=== PATIENT | male | born 1960 | race Two or more races ===

== ENCOUNTER 2017-06-10 19:45 | Inpatient (IN) | payer MEDICAID ==
[~2017-06-10] VITALS: Ht 167.6 cm; Wt 54.4 kg
--- NOTE | 2017-06-10 19:51 | Emergency Room Report ---
History of Present Illness General Source: Patient Present Illness HPI [id number] BIBEMS from [facility] for "not taking his medication" and "being combative with staff" when they were trying to give him his PO Keppra. Patient was just DCed from outside hospital to SNF yesterday after ?debridement to craniotomy site after he had ICH s/p craniotomy in April. Patient with history of DM as well. Patient calm, cooperative in ED - answering questions, appropriate EMS Rhythm strip is NSR. No ischemia. Fingerstick ~200 per EMS History of ETOH abuse Allergies: Coded Allergies: No Known Allergies (Unverified , 06/10/17) Patient History Past Surgical History: other - Craniotomy Pertinent Family History: none Social History: Reports: smoking Review of Systems All Other Systems: negative except mentioned in HPI Physical Exam Sp02 EP Interpretation: reviewed, normal General Appearance: normal inspection, well appearing, no apparent distress, alert, GCS 15, non-toxic Head: normocephalic, other - large post-craniotomy scar to top of head and left side with new stitches to left side of head, granulation tissue. No sign of infection Eyes: bilateral eye PERRL, bilateral eye EOMI ENT: normal ENT inspection, hearing grossly normal, normal voice Neck: normal inspection, full range of motion, supple, no bony tend Respiratory: normal inspection, lungs clear, normal breath sounds, no respiratory distress, no retraction, no wheezing Cardiovascular #1: regular rate, rhythm, no edema Gastrointestinal: normal inspection, normal bowel sounds, non tender, soft, no guarding, no hernia Genitourinary: no CVA tenderness Musculoskeletal: normal inspection, back normal, normal range of motion, Sara' s Sign negative Neurologic: normal inspection, alert, oriented x3, responsive, speech normal Psychiatric: normal inspection, judgement/insight normal, memory normal, mood/ affect normal, no suicidal/homicidal ideation, no delusions Skin: normal inspection, normal color, no rash Medical Decision Making Diagnostic Impression: Primary Impression: Behavioral change Additional Impressions: ACS (acute coronary syndrome) T wave inversion in electrocardiogram Altered level of consciousness ER Course VSS. Afebrile Patient NOT altered here. Conversing normally in [place] [facility] stable. No Leuks. Utox negative. UA negative for infection. CXR negative for PNA on ED review Mild hypoNa. No other significant metabolic abnormalities ECG with qwaves and deep TWI in deep and inferior leads. Troponin 0. No previous ECGs to compare Tele admit with Dr Leos at 930pm EKG Diagnostic Results Rate: normal, other - Deep TWI in inferior and anterior leads ASA given to the pt in ED: No Rhythm Strip Diag. Results EP Interpretation: yes Rate: 89 Rhythm: NSR, no PVC's, no ectopy Chest X-Ray Diagnostic Results Chest X-Ray Diagnostic Results : Chest X-Ray Ordered: Yes # of Views/Limited/Complete: 1 View Indication: Other - AMS EP Interpretation: Yes Interpretation: no consolidation, no effusion, no pneumothorax, no acute cardiopulmonary disease Impression: No acute disease Interpreting ER Provider: Dr Jenn Bill MD Status: improved Disposition: ADMITTED INPATIENT Condition: Serious JENN BILL M.D. Jun 10, 2017 19:51
[2017-06-10] MEDS ORDERED: DOCUSATE SODIU100 MG ORAL (20:03)
[2017-06-10] MEDS ORDERED: ZOFRAN4 M3 ORAL (20:03)
[2017-06-10] MEDS ORDERED: KEPPRA1000 MG ORAL (20:03)
[2017-06-10] MEDS ORDERED: PEPCID20 MG ORAL (20:03)
[2017-06-10] MEDS ORDERED: ACETAMINOPHEN500 M7 PO (20:03)
[2017-06-10] MEDS ORDERED: MILK OF MA400 MG/51 ORAL (20:03)
[2017-06-10 20:16] LABS: BASOPHILS % (AUTO) 1.7 % (0.0-2.0); EOSINOPHILS % (AUTO) 0.1 % (0.0-3.0); LYMPHOCYTES % (AUTO) 28.7 % (20.0-45.0); MEAN CORPUSCULAR HEMOGLOBIN 28.7 PG (27.0-31.0); MEAN CORPUSCULAR HGB CONC 33.9 G/DL (32.0-36.0); MEAN CORPUSCULAR VOLUME 85 FL (80-99); MONOCYTES % (AUTO) 15.2 % (1.0-10.0); NEUTROPHILS % (AUTO) 54.3 % (45.0-75.0); PLATELET COUNT 306 K/UL (150-450); RED BLOOD COUNT 3.61 M/UL (4.70-6.10); RED CELL DISTRIBUTION WIDTH 16.8 % (11.6-14.8); WHITE BLOOD COUNT 6.3 K/UL (4.8-10.8)
[2017-06-10 20:18] VITALS: BP 130/72
[2017-06-10 20:30] LABS: APPEARANCE,URINE CLEAR; KETONES,URINE NEGATIVE (NEGATIVE); LEUKOCYTE ESTERASE ,URINE NEGATIVE (NEGATIVE); NITRITE,URINE NEGATIVE (NEGATIVE); PH,URINE 7 (4.5-8.0); PROTEIN,URINE NEGATIVE (NEGATIVE); UROBILINOGEN,URINE 4 MG/DL (0.0-1.0)
[2017-06-10 20:34] LABS: TROPONIN I < 0.30 ng/mL (<=0.30)
[2017-06-10 20:38] LABS: ALANINE AMINOTRANSFERASE 15 U/L (3-41); ALBUMIN/GLOBULIN RATIO 0.5 (1.0-2.7); ANION GAP 12 (5-15); ASPARTATE AMINO TRANSFERASE 32 U/L (5-40); CALCIUM 8.7 mg/dL (8.6-10.2); CARBON DIOXIDE 23 mEQ/L (20-30); CHLORIDE 98 mEQ/L (98-107); CREATININE 0.7 mg/dL (0.7-1.2); GLOMERULAR FILTRATION RATE > 60 mL/min (>60); HEMOLYSIS 6; POTASSIUM 3.8 mEQ/L (3.4-4.9); SODIUM 133 mEQ/L (135-145)
[2017-06-10 20:48] LABS: CKMB < 1.5 ng/mL (< 6.7)
[2017-06-10 22:06] VITALS: BP 118/73
[2017-06-10] MEDS ORDERED: Diltiazem 25mg/5ml IV PRN (22:30)
[2017-06-10] MEDS ORDERED: Enalaprilat 2.5mg/2ml Inj IV PRN (22:30)
[2017-06-10] MEDS ORDERED: DuoNeb 0.5-3(2.5)mg/3ml neb HHN PRN (22:30)
[2017-06-10] MEDS ORDERED: Ketorolac 30mg Inj IV PRN (22:30)
[2017-06-10] MEDS ORDERED: Miralax 17gm pkt ORAL PRN (22:30)
[2017-06-10] MEDS ORDERED: Morphine Sulfate 2mg/ml Inj IVP PRN (22:30)
[2017-06-10] MEDS ORDERED: Nitroglycerin Subl 0.4mg tab (Bottle Of 25) SL PRN (22:30)
[2017-06-10] MEDS ORDERED: Milk of Magnesia 30ml Ud ORAL SCH (22:30)
[2017-06-11] VITALS (7 sets, daily range): BP systolic 96–130; BP diastolic 61–86
[2017-06-11 05:34] LABS: BASOPHILS % (AUTO) 1.6 % (0.0-2.0); EOSINOPHILS % (AUTO) 2.2 % (0.0-3.0); LYMPHOCYTES % (AUTO) 41.8 % (20.0-45.0); MEAN CORPUSCULAR HEMOGLOBIN 26.7 PG (27.0-31.0); MEAN CORPUSCULAR HGB CONC 31.3 G/DL (32.0-36.0); MEAN CORPUSCULAR VOLUME 85 FL (80-99); MEAN PLATELET VOLUME 5.4 FL (6.5-10.1); MONOCYTES % (AUTO) 15.6 % (1.0-10.0); NEUTROPHILS % (AUTO) 38.9 % (45.0-75.0); PLATELET COUNT 355 K/UL (150-450); RED CELL DISTRIBUTION WIDTH 17.4 % (11.6-14.8); WHITE BLOOD COUNT 7.5 K/UL (4.8-10.8)
[2017-06-11 05:45] LABS: INR 1.3 (0.9-1.1); PROTHROMBIN TIME 13.4 SEC (9.30-11.50)
[2017-06-11 05:50] LABS: TROPONIN I < 0.30 ng/mL (<=0.30)
[2017-06-11 07:08] LABS: CHOLESTEROL 121 mg/dL (< 200); CHOLESTEROL/HDL RATIO 3.2 (3.3-4.4); CRP QUANT < 0.3 mg/dL (< 0.5); HEMOLYSIS 1; LDL CHOLESTEROL (CALC.) 75 mg/dL (60-99)
[2017-06-11] MEDS: Aspirin Baby 81mg ORAL SCH (09:37)
[2017-06-11] MEDS: Docusate 100mg cap ORAL SCH ×2 (09:37→17:23)
[2017-06-11] MEDS: Heparin 5000 units/ml inj SUBQ SCH ×2 (09:39→20:23)
--- NOTE | 2017-06-11 09:59 | Diagnostic Imaging Report ---
Indication: Dyspnea Comparison: None A single view chest radiograph was obtained. Findings: No definite infiltrate or pulmonary vascular congestion identified. The heart is borderline enlarged. The aorta is mildly enlarged consistent with atherosclerotic vascular disease. The bones are remarkable. Impression: No acute disease
--- NOTE | 2017-06-11 12:10 | History and Physical ---
History of Present Illness General Date patient seen: Jun 11, 2017 Reason for Hospitalization: Altered Level of Consciousness Present Illness HPI 57 year old male wtih hx of seizures, DM, ETOH abuse craniotomy from [facility] for "not taking his medication" and "being combative with staff" when they were trying to give him his PO Keppra. Pt was admitted to telemetry b /o abnormal ekg. He is calm and comfortable without any complains. Allergies: Coded Allergies: No Known Allergies (Unverified , 06/10/17) Medication History Scheduled Acetaminophen (Acetaminophen), 650 MG PO EVERY 4 HOURS, (Reported) Docusate Sodium* (Docusate Sodium*), 100 MG ORAL TWICE A DAY, (Reported) Famotidine (Pepcid), 20 MG ORAL BID, (Reported) Levetiracetam (Keppra), 1,000 MG ORAL BID, (Reported) Magnesium Hydroxide* (Milk Of Magnesia*), 30 ML ORAL PRN, (Reported) Scheduled PRN Ondansetron* (Zofran*), 4 MG ORAL Q4HR PRN for Nausea & Vomiting, (Reported) Patient History Healthcare decision maker Resuscitation status Full Code Advanced Directive on File Review of Systems All Other Systems: negative except mentioned in HPI Physical Exam General Appearance: WD/WN Lines, tubes and drains: peripheral, central line HEENT: normocephalic, atraumatic Neck: non-tender, normal alignment Respiratory/Chest: chest wall non-tender, lungs clear Cardiovascular/Chest: normal peripheral pulses, normal rate Abdomen: non tender Last 24 Hour Vital Signs Date Time Temp Pulse Resp B/P (MAP) Pulse Ox O2 Delivery O2 Flow Rate FiO2 06/11/17 08:00 67 06/11/17 08:00 97.7 75 20 119/75 99 Room Air 06/11/17 04:03 97.9 06/11/17 04:00 63 06/11/17 04:00 98.0 75 20 130/86 100 Room Air 06/11/17 00:00 71 06/11/17 00:00 97.9 72 20 119/79 96 Room Air 06/10/17 22:40 98.2 84 19 118/73 99 Room Air 06/10/17 22:06 98.2 84 19 118/73 99 Room Air 8/31/17 20:18 98.4 80 18 130/72 99 Room Air 06/10/17 19:49 98.2 78 12 129/79 99 Room Air Laboratory Tests Test 06/10/17 20:00 06/10/17 20:10 06/11/17 05:20 White Blood Count 6.3 K/UL (4.8-10.8) 7.5 K/UL (4.8-10.8) Red Blood Count 3.61 M/UL (4.70-6.10) L 4.00 M/UL (4.70-6.10) L Hemoglobin 10.4 G/DL (14.2-18.0) L 10.7 G/DL (14.2-18.0) L Hematocrit 30.5 % (42.0-52.0) L 34.2 % (42.0-52.0) L Mean Corpuscular Volume 85 FL (80-99) 85 FL (80-99) Mean Corpuscular Hemoglobin 28.7 PG (27.0-31.0) 26.7 PG (27.0-31.0) L Mean Corpuscular Hemoglobin Concent 33.9 G/DL (32.0-36.0) 31.3 G/DL (32.0-36.0) L Red Cell Distribution Width 16.8 % (11.6-14.8) H 17.4 % (11.6-14.8) H Platelet Count 306 K/UL (150-450) 355 K/UL (150-450) Mean Platelet Volume 5.0 FL (6.5-10.1) L 5.4 FL (6.5-10.1) L Neutrophils (%) (Auto) 54.3 % (45.0-75.0) 38.9 % (45.0-75.0) L Lymphocytes (%) (Auto) 28.7 % (20.0-45.0) 41.8 % (20.0-45.0) Monocytes (%) (Auto) 15.2 % (1.0-10.0) H 15.6 % (1.0-10.0) H Eosinophils (%) (Auto) 0.1 % (0.0-3.0) 2.2 % (0.0-3.0) Basophils (%) (Auto) 1.7 % (0.0-2.0) 1.6 % (0.0-2.0) Sodium Level 133 mEQ/L (135-145) L Potassium Level 3.8 mEQ/L (3.4-4.9) Chloride Level 98 mEQ/L (98-107) Carbon Dioxide Level 23 mEQ/L (20-30) Anion Gap 12 (5-15) Blood Urea Nitrogen 11 mg/dL (7-23) Creatinine 0.7 mg/dL (0.7-1.2) Estimat Glomerular Filtration Rate > 60 mL/min (>60) Glucose Level 236 mg/dL (74-106) H Calcium Level 8.7 mg/dL (8.6-10.2) Total Bilirubin 0.5 mg/dL (0.0-1.2) Aspartate Amino Transf (AST/SGOT) 32 U/L (5-40) Alanine Aminotransferase (ALT/SGPT) 15 U/L (3-41) Alkaline Phosphatase 167 U/L (40-129) H Total Creatine Kinase 122 U/L (38-174) Creatine Kinase MB < 1.5 ng/mL (< 6.7) Creatine Kinase MB Relative Index Troponin I < 0.30 ng/mL (<=0.30) < 0.30 ng/mL (<=0.30) Total Protein 9.0 g/dL (6.6-8.7) H Albumin 3.0 g/dL (3.5-5.2) L Globulin 6.0 g/dL Albumin/Globulin Ratio 0.5 (1.0-2.7) L Urine Color Pale yellow Urine Appearance Clear Urine pH 7 (4.5-8.0) Urine Specific [place] 1.010 (1.005-1.035) Urine Protein Negative (NEGATIVE) Urine Glucose (UA) 4+ (NEGATIVE) H Urine Ketones Negative (NEGATIVE) Urine Occult Blood Negative (NEGATIVE) Urine Nitrite Negative (NEGATIVE) Urine Bilirubin Negative (NEGATIVE) Urine Urobilinogen 4 MG/DL (0.0-1.0) H Urine Leukocyte Esterase Negative (NEGATIVE) Urine Opiates Screen Negative (NEGATIVE) Urine Barbiturates Screen Negative (NEGATIVE) Phencyclidine (PCP) Screen Negative (NEGATIVE) Urine Amphetamines Screen Negative (NEGATIVE) Urine Benzodiazepines Screen Negative (NEGATIVE) Urine Cocaine Screen Negative (NEGATIVE) Urine Marijuana (THC) Screen Negative (NEGATIVE) Prothrombin Time 13.4 SEC (9.30-11.50) H Prothromb Time International Ratio 1.3 (0.9-1.1) H Activated Partial Thromboplast Time 33 SEC (23-33) Hemoglobin A1c 5.7 % (< 6.0) C-Reactive Protein, Quantitative < 0.3 mg/dL (< 0.5) Triglycerides Level 40 mg/dL (< 150) Cholesterol Level 121 mg/dL (< 200) LDL Cholesterol 75 mg/dL (60-99) HDL Cholesterol 38 mg/dL (> 60) Cholesterol/HDL Ratio 3.2 (3.3-4.4) L Thyroid Stimulating Hormone (TSH) 2.560 uIU/mL (0.300-4.500) Height (Feet): 5 Height (Inches): 6.00 Weight (Pounds): 120 Medications Current Medications Medications (Trade) Dose Ordered Sig/Alva Route PRN Reason Start Time Stop Time Status Last Admin Dose Admin Acetaminophen (Tylenol) 650 mg Q4H PRN ORAL FEVER 06/10/17 22:30 07/10/17 22:29 Albuterol/ Ipratropium (DuoNeb 0.5-3(2.5)mg/3ml) 3 ml EVERY 4 HOURS PRN HHN Shortness of Breath 06/10/17 22:30 06/15/17 22:29 Aspirin (ASA) 162 mg DAILY ORAL 06/11/17 09:00 07/11/17 08:59 06/11/17 09:37 Diltiazem HCl (Cardizem) 10 mg EVERY HOUR PRN IV heart rate more than 120, 06/10/17 22:30 07/10/17 22:29 Docusate Sodium (Colace) 100 mg TWICE A DAY ORAL 06/11/17 09:00 07/11/17 08:59 06/11/17 09:37 Enalaprilat (Vasotec) 2.5 mg EVERY 6 HOURS PRN IV sbp more than 160 06/10/17 22:30 07/10/17 22:29 Heparin Sodium (Porcine) (Heparin 5000 units/ml) 5,000 units EVERY 12 HOURS SUBQ 06/11/17 09:00 07/11/17 08:59 06/11/17 09:39 Ketorolac Tromethamine (Toradol 30mg) 30 mg Q6HR PRN IV moderate pain ( 4-6) 06/10/17 22:30 06/15/17 22:29 UNV Levetiracetam (Keppra) 1,000 mg BID ORAL 06/11/17 09:00 07/11/17 08:59 06/11/17 09:37 Magnesium Hydroxide (Mom) 30 ml PRN ORAL 06/10/17 22:30 07/10/17 22:29 Morphine Sulfate (Morphine Sulfate) 2 mg EVERY 4 HOURS PRN IVP severe Pain (Pain Scale 7-10) 06/10/17 22:30 06/17/17 22:29 06/11/17 03:33 Nitroglycerin (Ntg) 0.4 mg Every 5 Minutes PRN SL Prn Chest Pain 06/10/17 22:30 07/10/17 22:29 Ondansetron HCl (Zofran) 4 mg Q4HR PRN ORAL Nausea & Vomiting 06/10/17 22:30 07/10/17 22:29 Pantoprazole (Protonix) 40 mg DAILY ORAL 06/11/17 09:00 07/11/17 08:59 06/11/17 09:37 Polyethylene Glycol (Miralax) 17 gm DAILYPRN PRN ORAL Constipation 06/10/17 22:30 07/10/17 22:29 Temazepam (Restoril) 15 mg HSPRN PRN ORAL Insomnia 06/10/17 22:30 06/17/17 22:29 Assessment/Plan Problem List: (1) T wave inversion in electrocardiogram ICD Codes: R94.31 - Abnormal electrocardiogram [ECG] [EKG] SNOMED: 32532344 (2) Seizure disorder ICD Codes: G40.909 - Epilepsy, unspecified, not intractable, without status epilepticus SNOMED: 099664345 (3) Behavioral change ICD Codes: R46.89 - Other symptoms and signs involving appearance and behavior SNOMED: 81510991 (4) H/O craniotomy ICD Codes: Z98.890 - Other specified postprocedural states SNOMED: 37520229, 078780669 (5) History of intracranial injury ICD Codes: Z87.820 - Personal history of traumatic brain injury SNOMED: 767949156, 153217186 (6) Diabetes mellitus ICD Codes: E11.9 - Type 2 diabetes mellitus without complications SNOMED: 59602716 Assessment/Plan serial ekg, troponin, echo neuro psych evaluation cardio evaluation RONAK SAMANO Jun 11, 2017 12:10
--- NOTE | 2017-06-11 15:05 | Consultation ---
Consult Note Consult Note NEUROLOGY CONSULTATION: Full note dictated #[id number] 57 y/o, RH, HM with PH of HTN, DM, ETOH abuse, a seizure disorder, a left SDH s/ p drainage, who lives in a NH. Refused to take medicines and became combative and was thus sent to [facility] ER ON EXAM: Problems with orientation, memory, VSF, HCF language. Right VII central Brisker reflexes on right IMPRESSION: Behavioral problems following TBI. Continues to have significant cognitive problems. Mild right paresis with brisker reflexes. REC: Continue present Rx. CT brain w/o and w contrast. EEG Continue Keppra 1 G q 12 H Observe Hyacinth Spence M.D., M.S.P.H. HYACINTH SPENCE Jun 11, 2017 15:05
--- NOTE | 2017-06-11 16:02 | Diagnostic Imaging Report ---
Indication: History of a subdural hematoma. Technique: Contiguous 5 mm thick transaxial imaging of the head obtained in a Siemens Sensation [address] scanner. Soft tissue and bone windows generated. Total Dose length Product (DLP): [address] Dose Index Volume (CTDIvol): 70.38, 0.15 mGy Comparison: none Findings: Patient is had a large left craniotomy. There is suggestion of some peptic thickening of the underlying dura. There is a trace focus of air deep to the craniotomy flap indicating the surgery was relatively recent. There is no subdural hematoma identified. There is no mass effect. There is minimal left to right midline shift. This should be taken in context with fact that patient has likely had relatively recent left craniotomy. In other words, the midline shift may of been worse previously. Please correlate clinically. We do not have previous studies for comparison. In addition, there is a ex-vacuo dilatation of the temporal horn of the left lateral ventricle which is dilated, synovitis. There is low-attenuation volume loss of the left temporal lobe. The basal cisterns appear normal. Impression: No subdural hematoma identified. Evidence of relatively recent left craniotomy with a small focus of pneumocephalus still present. Signs of volume loss within the left temporal lobe. Minimal left to right midline shift about 5 mm noted. This should be taken in the context of recent craniotomy. Comparison to prior studies suggested if possible. The CT scanner at [facility] is accredited by the [employer] and the scans are performed using dose optimization techniques as appropriate to a performed exam including Automatic Exposure control.
--- NOTE | 2017-06-11 23:30 | Consultation ---
DATE OF CONSULTATION: 06/11/2017 NEUROLOGY CONSULTATION CONSULTING PHYSICIAN: Garrett Spence M.D. REQUESTING PHYSICIAN: Jorge Leos M.D. HISTORY: Mr. Patrick Celeste is a 57-year-old, right-handed, gentleman, who does have a past history of high blood pressure, diabetes mellitus, chronic alcohol use, a seizure disorder - type unknown, and a recent left subdural hematoma status post drainage. He recently had dehiscence of his wound following the subpleural hematoma resection and was hospitalized in another hospital and then sent to a detention. He was at the detention for a few days where he refused to take his medicines and became combative. He was thus sent to the [facility] Emergency Room and has been admitted since then. At this point in time, he feels relatively well. He is completely oblivious as to how he got here and why he got here. He is unable to give much of a history. When asked about his head operation, he was unable to give any details. He denies any weakness on one side or the other, numbness on one side or the other, problems with speech, problems with language, or problems with his vision. PAST MEDICAL HISTORY: Significant for high blood pressure, diabetes mellitus, alcohol abuse, seizure disorder, left subdural hematoma - status post drainage, infection of the left subdural hematoma wound and dehiscence of wound, and behavioral problems. FAMILY HISTORY: Nothing significant as per the patient, but quite unreliable. PERSONAL HISTORY: Home: He lives in a detention. 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 He cannot remember what his last job was. Habits: He has been smoking since he was a child. He has been drinking for numerous years. He tells me that he still drinks four alcoholic drinks every day. He denies use of any illicit drugs. PRESENT MEDICATIONS: Include DSS, Keppra 1 g twice a day, aspirin 162 mg daily, Protonix, heparin for DVT prophylaxis, milk of magnesia, Zofran, DuoNeb inhaler, nitroglycerin, Tylenol, morphine sulfate, MiraLAX, temazepam, Vasotec, and diltiazem. PHYSICAL EXAMINATION: GENERAL: He is a well-developed, but lean gentleman, lying in bed, in no acute distress. HEAD: Normocephalic with recent subdural hematoma evacuation scar on the left scalp with dehiscence of the wound in the parietooccipital area. EENT: Examination benign. NECK: No neck rigidity was observed. NEUROLOGIC EXAMINATION: MENTAL STATUS EXAMINATION: He was awake and alert. He was oriented to self only. He had no idea where he was or what the date was. He was able to recall 3/3 words immediately, but could not/remember any of them in 1 minute and 3 minutes even on the second trial. He was unable to tell me who the present president was and who prior presidents were. His mathematical skills were impaired. His visuospatial function was also impaired. SPEECH: He had a mild dysarthria. LANGUAGE: He was able to comprehend and express himself relatively well. CRANIAL NERVE EXAMINATION: II: Visual reynolds were intact to confrontation testing. III, IV & : The external ocular movements were full and the pupils 3 mm in diameter, equal, round, regular, and reactive to light. V: He had normal facial sensations and the temporales, masseters, and pterygoids functioned normally. VII: He had flattening of the right nasolabial fold. VIII: He was able to hear well bilaterally and had no nystagmus. IX: The palate moved symmetrically on phonation. X: He had no hoarseness of voice. XI: The sternocleidomastoids and trapezii functioned normally. XII: The tongue was in the midline without any fasciculations or atrophy. MOTOR SYSTEM: The tone was normal in all four extremities. Examination of muscle mass revealed no focal wasting. Examination of power revealed grade 5/5 power in all muscle groups tested. SENSORY EXAMINATION: He had intact sensations to pinprick and light touch. He was unable to cooperate for other sensory modalities. REFLEXES: 1++ on the right and 1+ on the left at the biceps, triceps, brachioradialis, and knees and 0 at both ankles. The plantar responses were flexor bilaterally. COORDINATION: He performed well on [id number] testing. He was unable to perform [id number] testing. STANCE: Deferred. GAIT: Deferred. DIAGNOSTIC IMPRESSION: 1. Mr. Patrick Celeste is a 57-year-old, right-handed, gentleman, who does have a past history of hypertension, diabetes mellitus, alcohol abuse, seizure disorder of unknown type, and left subdural hematoma status post drainage with problems with wound healing, who apparently became combative at his detention and refused to take his medicines as a result of which, he was hospitalized at [facility]. 2. On neurological examination, at this time, he does have significant problems with orientation, recent and remote memory, visuospatial function, higher cognitive function, and language. He also has a right VII central facial paresis and brisker reflexes on the right side compared to the left, but the reflexes are globally diminished. 3. Laboratory data on admission revealed that he was mildly anemic with a hemoglobin of 10.4. His chemistry panel revealed a sodium, which was low at 133, a glucose that was elevated to 236, an alkaline phosphatase elevated to 167, and albumin that was low at 3.0. Further laboratory tests revealed that his TSH was normal at 2.5 and hemoglobin A1c was also normal at 5.7. 4. The patient's history, neurological examination, and laboratory data are most compatible with behavioral problems following traumatic brain injury. He also seems to have significant cognitive problems, which may be related to the head trauma or due to other reasons. He does have a mild right paresis with brisker reflexes on the right side. RECOMMENDATIONS: 1. Agree with management thus far. 2. Would continue the patient on Keppra 1 g q.[address] scan of the brain without and with contrast should be performed to evaluate the patient for the present state of a subdural collection. 4. An EEG will be ordered to evaluate the patient for ongoing ictal or interictal phenomena. 5. The patient should be worked up thoroughly for other treatable causes of cognitive decline. 6. Depending on how the patient fares over the next day or so, further recommendations will be given. Thank you for entrusting me with the care of Mr. Celeste. I shall follow him with you. Garrett Spence M.D., M.S.P.H. DR: PHILLIP JOB#: [id number] CASEY
[2017-06-12] VITALS (7 sets, daily range): BP systolic 98–155; BP diastolic 58–115
--- NOTE | 2017-06-12 08:37 | Pulmonology Progress Note ---
Assessment/Plan Problems: (1) T wave inversion in electrocardiogram (2) Seizure disorder (3) Behavioral change (4) H/O craniotomy (5) History of intracranial injury (6) Diabetes mellitus Assessment/Plan pending EEG, awaiting cardio to see all enzymes negative pt/ot Subjective ROS Limited/Unobtainable: No Allergies: Coded Allergies: No Known Allergies (Unverified , 06/10/17) Objective Last 24 Hour Vital Signs Date Time Temp Pulse Resp B/P (MAP) Pulse Ox O2 Delivery O2 Flow Rate FiO2 06/12/17 07:57 98 Room Air 06/12/17 07:56 87 16 Room Air 06/12/17 04:00 75 06/12/17 03:50 97.9 80 16 98/58 98 Room Air 06/12/17 00:00 81 06/11/17 23:47 98.2 80 20 96/66 97 Room Air 06/11/17 20:00 77 06/11/17 19:56 97.9 82 19 109/71 98 Room Air 06/11/17 19:44 78 16 Room Air 06/11/17 19:44 97 Room Air 21 06/11/17 16:00 97.5 76 21 101/63 99 Room Air 06/11/17 16:00 72 06/11/17 12:00 62 06/11/17 12:00 98.2 62 20 101/61 99 Room Air General Appearance: WD/WN HEENT: normocephalic, anicteric Respiratory/Chest: chest wall non-tender, lungs clear Cardiovascular: normal peripheral pulses, normal rate Abdomen: normal bowel sounds, soft, non tender Extremities: no cyanosis Skin: no rash, no lesions Microbiology Date/Time Source Procedure Growth Status 06/10/17 20:37 Rectum VRE Culture - Final NO VANCOMYCIN RESISTANT ENTEROCOCCUS ... Complete Laboratory Tests 06/11/17 16:50: Vitamin D 25-Hydroxy [Pending], 25-Hydroxy Vitamin D2 [Pending], 25-Hydroxy Vitamin D3 [Pending], Folate [Pending], Rapid Plasma Reagin Non reactive 06/12/17 07:14: Troponin I [Pending] Current Medications Medications (Trade) Dose Ordered Sig/Alva Route PRN Reason Start Time Stop Time Status Last Admin Dose Admin Acetaminophen (Tylenol) 650 mg Q4H PRN ORAL FEVER 06/10/17 22:30 07/10/17 22:29 Albuterol/ Ipratropium (DuoNeb 0.5-3(2.5)mg/3ml) 3 ml EVERY 4 HOURS PRN HHN Shortness of Breath 06/10/17 22:30 06/15/17 22:29 Aspirin (ASA) 162 mg DAILY ORAL 06/11/17 09:00 07/11/17 08:59 06/11/17 09:37 Diltiazem HCl (Cardizem) 10 mg EVERY HOUR PRN IV heart rate more than 120, 06/10/17 22:30 07/10/17 22:29 Docusate Sodium (Colace) 100 mg TWICE A DAY ORAL 06/11/17 09:00 07/11/17 08:59 06/11/17 17:23 Enalaprilat (Vasotec) 2.5 mg EVERY 6 HOURS PRN IV sbp more than 160 06/10/17 22:30 07/10/17 22:29 Heparin Sodium (Porcine) (Heparin 5000 units/ml) 5,000 units EVERY 12 HOURS SUBQ 06/11/17 09:00 07/11/17 08:59 06/11/17 20:23 Levetiracetam (Keppra) 1,000 mg BID ORAL 06/11/17 09:00 07/11/17 08:59 06/11/17 17:23 Magnesium Hydroxide (Mom) 30 ml PRN ORAL 06/10/17 22:30 07/10/17 22:29 Morphine Sulfate (Morphine Sulfate) 2 mg EVERY 4 HOURS PRN IVP severe Pain (Pain Scale 7-10) 06/10/17 22:30 06/17/17 22:29 06/11/17 03:33 Nitroglycerin (Ntg) 0.4 mg Every 5 Minutes PRN SL Prn Chest Pain 06/10/17 22:30 07/10/17 22:29 Ondansetron HCl (Zofran) 4 mg Q4HR PRN ORAL Nausea & Vomiting 06/10/17 22:30 07/10/17 22:29 Pantoprazole (Protonix) 40 mg DAILY ORAL 06/11/17 09:00 07/11/17 08:59 06/11/17 09:37 Polyethylene Glycol (Miralax) 17 gm DAILYPRN PRN ORAL Constipation 06/10/17 22:30 07/10/17 22:29 Temazepam (Restoril) 15 mg HSPRN PRN ORAL Insomnia 06/10/17 22:30 06/17/17 22:29 RONAK SAMANO Jun 12, 2017 08:37
[2017-06-12 08:44] LABS: TROPONIN I < 0.30 ng/mL (<=0.30)
[2017-06-12] MEDS: Docusate 100mg cap ORAL SCH ×2 (09:03→09:10)
[2017-06-12] MEDS: Aspirin Baby 81mg ORAL SCH ×2 (09:03→09:11)
[2017-06-12] MEDS: Heparin 5000 units/ml inj SUBQ SCH ×2 (09:04→09:11)
--- NOTE | 2017-06-12 12:13 | Cardiology Report ---
APPROVED REPORT EXAM: Two-dimensional and M-mode echocardiogram with Doppler and color Doppler. INDICATION LV function M-Mode DIMENSIONS IVSd1.2 (0.7-1.1cm)Left Atrium (MM)3.7 (1.6-4.0cm) LVDd4.1 (3.5-5.6cm)Aortic Root3.1 (2.0-3.7cm) PWd1.2 (0.7-1.1cm)Aortic Cusp Exc.1.9 (1.5-2.0cm) LVDs2.7 (2.5-4.0cm) PWs1.5 cm Normal left ventricular chamber size, systolic function and wall motion. Left ventricular ejection fraction estimated to be 60 %. Mild left ventricular hypertrophy by 2-D. No evidence of pericardial effusion. All other cardiac chamber sizes are within normal limits. Mild focal aortic valve sclerosis with adequate cusp excursion. Thickened mitral valve leaflets with normal excursion. Mitral annulus and aortic root calcification. Pulmonic valve not well visualized. Normal tricuspid valve structure. IVC at normal size with physiologic collapse. A color flow and spectral Doppler study was performed and revealed: Mild aortic regurgitation. Trace mitral regurgitation. Mitral diastolic velocities suggest reduced left ventricular relaxation c/w mild LV diastolic dysfunction (Grade I ). Mild tricuspid regurgitation. Tricuspid systolic velocities suggests peak right ventricular systolic pressure of 25 mmHg. Trace pulmonic regurgitation present.
[2017-06-12] MEDS ORDERED: Haloperidol 5mg/ml Inj IM ONE (15:15)
[2017-06-12] MEDS ORDERED: DiphenhydrAMINE 50mg/ml Inj IM ONE (15:15)
[2017-06-12] MEDS ORDERED: LORazepam Inj 2mg/ml 1ml IM ONE (15:15)
[2017-06-12] MEDS ORDERED: LORazepam Inj 2mg/ml 1ml IV PRN (19:00)
--- NOTE | 2017-06-12 22:48 | Neurology Progress Note ---
Interim History Interim History Interim History Mr. Celeste is very sleepy now. He is very negativistic. He was very agitated this afternoon and had to be given neuroleptics and Ativan to control his behavior. He has had no witnessed seizures. He is not taking his medicines regularly. He has not eaten his dinner. Review of Systems Neuro Review of Systems Unable to obtain. Objective Physical Exam Last Vital Signs Date Time Temp Pulse Resp B/P (MAP) Pulse Ox O2 Delivery O2 Flow Rate FiO2 06/12/17 20:00 97.7 78 20 102/66 95 Room Air 06/12/17 16:12 10.0 06/11/17 19:44 21 Laboratory Tests Test 06/12/17 07:14 Troponin I < 0.30 ng/mL (<=0.30) Neurologic Exam Objective PHYSICAL EXAMINATION: GENERAL: He is a well-developed, but lean gentleman, lying in bed, in no acute distress. HEAD: Normocephalic with recent subdural hematoma evacuation scar on the left scalp with dehiscence of the wound in the parietooccipital area. EENT: Examination benign. NECK: No neck rigidity was observed. NEUROLOGIC EXAMINATION: MENTAL STATUS EXAMINATION: He was lethargic. When aroused he was negativistic and refused to cooperate. SPEECH: He had a moderate dysarthria. LANGUAGE: He did not cooperate.. CRANIAL NERVE EXAMINATION: II: Visual reynolds were intact to threat. III, IV & : The external ocular movements were full and the pupils 3 mm in diameter, equal, round, regular, and reactive to light. V: He had normal facial sensations and the temporales, masseters, and pterygoids functioned normally. VII: He had flattening of the right nasolabial fold. VIII: He was able to hear well bilaterally and had no nystagmus. IX: The palate moved symmetrically on phonation. X: He had no hoarseness of voice. XI: The sternocleidomastoids and trapezii functioned normally. XII: The tongue was in the midline without any fasciculations or atrophy. MOTOR SYSTEM: The tone was normal in all four extremities. Examination of muscle mass revealed no focal wasting. Examination of power was impossible to perform. He however moved all 4 limbs with excellent strength on deep pain. SENSORY EXAMINATION: He moved all 4 limbs with excellent strength on deep pain. REFLEXES: 1++ on the right and 1+ on the left at the biceps, triceps, brachioradialis, and knees and 0 at both ankles. The plantar responses were flexor bilaterally. COORDINATION, STANCE & GAIT: Could not be tested. Impression/Recommendations Diagnostic Impression 1. Mr. Patrick Celeste is a 57-year-old, right-handed, gentleman, who does have a past history of hypertension, diabetes mellitus, alcohol abuse, seizure disorder of unknown type, and left subdural hematoma status post drainage with problems with wound healing, who apparently became combative at his [facility] and refused to take his medicines as a result of which, he was hospitalized at [facility]. 2. He was again combative and agitated today and had to be sedated. He is poorly responsive and negativistic now. 3. On neurological examination, at this time, he does have significant global cerebral dysfunction and refuses to cooperate for a mental status examination. He also has a right VII central facial paresis and brisker reflexes on the right side compared to the left, but the reflexes are globally diminished. 4. Laboratory data on admission revealed that he was mildly anemic with a hemoglobin of 10.4. His chemistry panel revealed a sodium, which was low at 133 , a glucose that was elevated to 236, an alkaline phosphatase elevated to 167, and albumin that was low at 3.0. Further laboratory tests revealed that his TSH was normal at 2.5 and hemoglobin A1c was also normal at 5.7. 5. The EEG done on 06/12/17 revealed a mild encephalopathy, left fronto-centro- temporal focal dysfunction, and a right mid- and posterior- temporal epileptogenic focus with inter-ictal discharges. 6. The CT of the brain done on 06/11/17 revealed no subdural hematoma. However evidence of relatively recent left craniotomy with a small focus of pneumocephalus still present, and signs of encephalomalacia within the left temporal lobe.were seen. 7. The patient's history, neurological examination, and laboratory data are most compatible with behavioral problems following traumatic brain injury. He also seems to have significant cognitive problems, which may be related to the head trauma or due to other reasons. He does have a mild right paresis with brisker reflexes on the right side. Recommendations 1. Continue present management. 2. Continue the patient on Keppra 1 g q.12 hours but change to IV form as he is refusing PO medicines. 3. Await work-up for other treatable causes of cognitive decline. 4. Treatment of behavioral problems as per psychiatrist. Hyacinth Spence M.D., M.S.P.H. HYACINTH SPENCE Jun 12, 2017 22:48
--- NOTE | 2017-06-12 23:00 | Electroencephalogram ---
ELECTROENCEPHALOGRAM DATE OF TRACIN06/12/2017. REQUESTING PHYSICIAN: Jorge Leos M.D. HISTORY: This EEG was performed on a 57-year-old gentleman with a history of a seizure disorder, alcohol abuse, closed head trauma with left subdural hematoma - status post drainage with dehiscence of the wound, who was hospitalized for behavioral problems. The purpose of this EEG was to evaluate the patient for ongoing ictal or interictal phenomena. TECHNICAL NOTE: This EEG was performed on [employer] [facility] with electrodes placed on the scalp according to the International 10-20 system. [id number] and [id number] montages were used. The EEG was technically satisfactory and was performed in the awake and drowsy states. OBSERVATIONS: In the best awake state, the background activity consisted of 8-8.5 Hz alpha activity with a moderate amount of intermixed theta frequencies. Drowsiness was characterized by slowing of the background in the 5-6 Hz theta range with left frontocentrotemporal polymorphic delta activity. T3 and T5 sharp and slow-wave discharges were seen throughout the tracing. These discharges usually occurred as single events and sometimes in brief runs of 2 to 3 discharges. IMPRESSION: This is an abnormal EEG characterized by: 1. Slowing of the background with an unusually large amount of intermixed theta activity seen during the awake state. 2. The presence of left frontocentrotemporal polymorphic delta activity. 3. T3 and T5 sharp and slow-wave discharges. COMMENT: The study is consistent with: 1. An encephalopathy of a mild degree. 2. Focal dysfunction in the right frontocentrotemporal region. 3. A left mid and posterior temporal epileptogenic focus with interictal discharges seen during this EEG. Garrett Spence M.D., M.S.P.H. DR: PAT JOB#: [id number] [email or web address]
[2017-06-13] VITALS (7 sets, daily range): BP systolic 96–116; BP diastolic 58–74
[2017-06-13 07:52] LABS: MEAN CORPUSCULAR HGB CONC 32.1 G/DL (32.0-36.0); MEAN CORPUSCULAR VOLUME 87 FL (80-99); MEAN PLATELET VOLUME 6.2 FL (6.5-10.1); PLATELET COUNT 276 K/UL (150-450); RED BLOOD COUNT 3.57 M/UL (4.70-6.10); RED CELL DISTRIBUTION WIDTH 17.2 % (11.6-14.8); WHITE BLOOD COUNT 6.8 K/UL (4.8-10.8)
[2017-06-13 08:01] LABS: INR 1.2 (0.9-1.1); PROTHROMBIN TIME 12.8 SEC (9.30-11.50)
[2017-06-13 08:08] LABS: ALANINE AMINOTRANSFERASE 14 U/L (3-41); ALBUMIN/GLOBULIN RATIO 0.4 (1.0-2.7); ANION GAP 10 (5-15); ASPARTATE AMINO TRANSFERASE 43 U/L (5-40); CALCIUM 8.7 mg/dL (8.6-10.2); CARBON DIOXIDE 24 mEQ/L (20-30); CHLORIDE 107 mEQ/L (98-107); CREATININE 0.9 mg/dL (0.7-1.2); GLOMERULAR FILTRATION RATE > 60 mL/min (>60); LACTATE DEHYDROGENASE 155 U/L (135-230); MAGNESIUM 1.8 mg/dL (1.7-2.5); PHOSPHORUS 4.1 mg/dL (2.5-4.8); POTASSIUM 3.7 mEQ/L (3.4-4.9); SODIUM 141 mEQ/L (135-145); TOTAL PROTEIN 8.3 g/dL (6.6-8.7)
[2017-06-13] MEDS: Docusate 100mg cap ORAL SCH ×2 (08:37→18:07)
[2017-06-13] MEDS: Aspirin Baby 81mg ORAL SCH (08:37)
[2017-06-13] MEDS: levETIRAcetam 1,000mg/NS100ml 100 ML IVPB SCH ×3 (08:37→21:48)
[2017-06-13] MEDS: Heparin 5000 units/ml inj SUBQ SCH ×2 (08:38→21:50)
[2017-06-13 08:59] LABS: HEMOLYSIS 0; IRON 21 ug/dL (59-158); TOTAL IRON BINDING CAPACITY 368 ug/dL (250-400)
[2017-06-13 09:40] LABS: ANISOCYTOSIS 1+; BAND NEUTROPHILS % (MANUAL) 0 % (0-8); BASOPHILS % (MANUAL) 0 % (0-2); EOSINOPHILS % (MANUAL) 3 % (0-3); HYPOCHROMASIA 1+; LYMPHOCYTES % (MANUAL) 56 % (20-45); NEUTROPHILS % (MANUAL) 28 % (45-75); PLATELET ESTIMATE ADEQUATE; PLATELET MORPHOLOGY NORMAL; TOTAL CELLS COUNTED 100
[2017-06-13 09:56] LABS: ERYTHROCYTE SEDIMENTATION RATE 68 MM/HR (0-20); PATH BLOOD SMEAR/OMC SENT TO PATHOLOGIST; RETICULOCYTE COUNT 0.9 % (0.0-2.0)
--- NOTE | 2017-06-13 11:41 | Pulmonology Progress Note ---
Assessment/Plan Problems: (1) Seizure disorder (2) Behavioral change (3) H/O craniotomy (4) History of intracranial injury (5) Diabetes mellitus Assessment/Plan episodes of agitation pending EEG, awaiting cardio to see all enzymes negative pt/ot med/surg awaiting psych evaluation Subjective ROS Limited/Unobtainable: No Constitutional: Reports: no symptoms HEENT: Repors: no symptoms Respiratory: Reports: no symptoms Allergies: Coded Allergies: No Known Allergies (Unverified , 06/10/17) Objective Last 24 Hour Vital Signs Date Time Temp Pulse Resp B/P (MAP) Pulse Ox O2 Delivery O2 Flow Rate FiO2 06/13/17 11:32 98.3 90 19 116/68 99 Room Air 06/13/17 08:12 97.9 86 19 109/74 99 Room Air 06/13/17 08:00 102 06/13/17 07:28 79 18 Room Air 06/13/17 04:00 97.7 74 20 100/65 97 Room Air 06/13/17 04:00 92 06/13/17 00:00 97.9 80 20 96/60 Room Air 06/13/17 00:00 83 06/12/17 20:00 97.7 78 20 102/66 95 Room Air 06/12/17 20:00 73 06/12/17 19:48 75 18 Room Air 06/12/17 16:12 97.7 89 15 104/67 100 Non-Rebreather 10.0 06/12/17 16:00 103 06/12/17 15:46 97.7 107 21 128/92 100 Room Air 06/12/17 12:00 77 06/12/17 12:00 97.5 75 20 111/67 100 Room Air Intake and Output 06/13/17 06/14/17 19:00 07:00 Intake Total 350 ml Balance 350 ml Intake Oral 350 ml # Voids 1 # Bowel Movements 1 General Appearance: WD/WN HEENT: normocephalic, anicteric Respiratory/Chest: chest wall non-tender, lungs clear, no respiratory distress Cardiovascular: normal rate, regular rhythm Abdomen: normal bowel sounds, soft, non tender, no organomegaly Microbiology Date/Time Source Procedure Growth Status 06/10/17 20:37 Nasal Nares MRSA Culture - Final Staphylococcus Aureus - Mrsa Complete 06/10/17 20:37 Rectum VRE Culture - Final NO VANCOMYCIN RESISTANT ENTEROCOCCUS ... Complete Laboratory Tests 06/13/17 07:00: White Blood Count 6.8, Red Blood Count 3.57L, Hemoglobin 10.0L, Hematocrit 31.1L , Mean Corpuscular Volume 87, Mean Corpuscular Hemoglobin 28.0, Mean Corpuscular Hemoglobin Concent 32.1, Red Cell Distribution Width 17.2H, Platelet Count 276, Mean Platelet Volume 6.2L, Neutrophils (%) (Auto) , Lymphocytes (%) (Auto) , Monocytes (%) (Auto) , Eosinophils (%) (Auto) , Basophils (%) (Auto) , Differential Total Cells Counted 100, Neutrophils % ( Manual) 28L, Lymphocytes % (Manual) 56H, Monocytes % (Manual) 13H, Eosinophils % (Manual) 3, Basophils % (Manual) 0, Band Neutrophils 0, Platelet Estimate Adequate, Platelet Morphology Normal, Hypochromasia 1+, Anisocytosis 1+, Erythrocyte Sedimentation Rate 68H, Reticulocyte Count 0.9, Prothrombin Time 12.8H, Prothromb Time International Ratio 1.2H, Activated Partial Thromboplast Time 32, Sodium Level 141, Potassium Level 3.7, Chloride Level 107, Carbon Dioxide Level 24, Anion Gap 10, Blood Urea Nitrogen 14, Creatinine 0.9, Estimat Glomerular Filtration Rate > 60, Glucose Level 102, Calcium Level 8.7, Phosphorus Level 4.1, Magnesium Level 1.8, Iron Level 21L, Total Iron Binding Capacity 368, Percent Iron Saturation 6L, Unsaturated Iron Binding 347H, Total Bilirubin 0.4, Aspartate Amino Transf (AST/SGOT) 43H, Alanine Aminotransferase ( ALT/SGPT) 14, Alkaline Phosphatase 159H, Lactate Dehydrogenase 155, Total Protein 8.3, Albumin 2.7L, Globulin 5.6, Albumin/Globulin Ratio 0.4L, Carcinoembryonic Antigen 1.7, Vitamin B12 Level 665, Folate [Pending] Current Medications Medications (Trade) Dose Ordered Sig/Alva Route PRN Reason Start Time Stop Time Status Last Admin Dose Admin Acetaminophen (Tylenol) 650 mg Q4H PRN ORAL FEVER 06/10/17 22:30 07/10/17 22:29 Albuterol/ Ipratropium (DuoNeb 0.5-3(2.5)mg/3ml) 3 ml EVERY 4 HOURS PRN HHN Shortness of Breath 06/10/17 22:30 06/15/17 22:29 Aspirin (ASA) 162 mg DAILY ORAL 06/11/17 09:00 07/11/17 08:59 06/13/17 08:37 Diltiazem HCl (Cardizem) 10 mg EVERY HOUR PRN IV heart rate more than 120, 06/10/17 22:30 07/10/17 22:29 Docusate Sodium (Colace) 100 mg TWICE A DAY ORAL 06/11/17 09:00 07/11/17 08:59 06/13/17 08:37 Enalaprilat (Vasotec) 2.5 mg EVERY 6 HOURS PRN IV sbp more than 160 06/10/17 22:30 07/10/17 22:29 Heparin Sodium (Porcine) (Heparin 5000 units/ml) 5,000 units EVERY 12 HOURS SUBQ 06/11/17 09:00 07/11/17 08:59 06/13/17 08:38 Levetiracetam 100 ml @ 400 mls/hr Q12HR IVPB 06/12/17 23:00 07/12/17 22:59 06/13/17 08:37 Lorazepam (Ativan 2mg/ml 1ml) 1 mg Q2H PRN IV For Anxiety 06/12/17 19:00 06/19/17 18:59 Magnesium Hydroxide (Mom) 30 ml PRN ORAL 06/10/17 22:30 07/10/17 22:29 Morphine Sulfate (Morphine Sulfate) 2 mg EVERY 4 HOURS PRN IVP severe Pain (Pain Scale 7-10) 06/10/17 22:30 06/17/17 22:29 06/11/17 03:33 Nitroglycerin (Ntg) 0.4 mg Every 5 Minutes PRN SL Prn Chest Pain 06/10/17 22:30 07/10/17 22:29 Ondansetron HCl (Zofran) 4 mg Q4HR PRN ORAL Nausea & Vomiting 06/10/17 22:30 07/10/17 22:29 Pantoprazole (Protonix) 40 mg DAILY ORAL 06/11/17 09:00 07/11/17 08:59 06/12/17 09:03 Polyethylene Glycol (Miralax) 17 gm DAILYPRN PRN ORAL Constipation 06/10/17 22:30 07/10/17 22:29 Temazepam (Restoril) 15 mg HSPRN PRN ORAL Insomnia 06/10/17 22:30 06/17/17 22:29 RONAK SAMANO Jun 13, 2017 11:41
[2017-06-13] MEDS ORDERED: Nitroglycerin Subl 0.4mg tab (Bottle Of 25) SL PRN (15:00)
[2017-06-13] MEDS ORDERED: Diltiazem 25mg/5ml IV PRN (15:00)
[2017-06-13] MEDS ORDERED: NS 275ml ONE (15:35)
[2017-06-13] MEDS ORDERED: Tubing IV Secondary IV ONE (15:35)
[2017-06-13] MEDS ORDERED: LORazepam Inj 2mg/ml 1ml IV PRN (16:00)
[2017-06-13] MEDS ORDERED: Milk of Magnesia 30ml Ud ORAL PRN (16:00)
--- NOTE | 2017-06-13 16:59 | Consultation ---
History of Present Illness General Date patient seen: Jun 12, 2017 Chief Complaint: Altered Level of Consciousness Present Illness HPI 57 year old male wtih hx of seizures, DM, ETOH abuse craniotomy from [facility] for "not taking his medication" and "being combative with staff" when they were trying to give him his PO Keppra. the pt has episodes of agitation and uncooperative Allergies: Coded Allergies: No Known Allergies (Unverified , 06/10/17) Medication History Scheduled Acetaminophen (Acetaminophen), 650 MG PO EVERY 4 HOURS, (Reported) Docusate Sodium* (Docusate Sodium*), 100 MG ORAL TWICE A DAY, (Reported) Famotidine (Pepcid), 20 MG ORAL BID, (Reported) Levetiracetam (Keppra), 1,000 MG ORAL BID, (Reported) Magnesium Hydroxide* (Milk Of Magnesia*), 30 ML ORAL PRN, (Reported) Scheduled PRN Ondansetron* (Zofran*), 4 MG ORAL Q4HR PRN for Nausea & Vomiting, (Reported) Patient History Limited by: medical condition History Provided By: Patient, Significant Other, Medical Record, PMD Healthcare decision maker Resuscitation status Full Code Advanced Directive on File Past Medical/Surgical History Past Medical/Surgical History: (1) Altered level of consciousness (2) T wave inversion in electrocardiogram (3) Behavioral change (4) ACS (acute coronary syndrome) (5) Seizure disorder (6) History of intracranial injury (7) Diabetes mellitus Review of Systems Psychiatric: Reports: prior hx, anxiety, depressed feelings, emotional problems , hallucinations Physical Exam General Appearance: alert, agitated Neurologic: alert, responsive, depressed affect Last 24 Hour Vital Signs Date Time Temp Pulse Resp B/P (MAP) Pulse Ox O2 Delivery O2 Flow Rate FiO2 06/13/17 16:15 97.0 82 21 101/58 97 Room Air 06/13/17 11:32 98.3 90 19 116/68 99 Room Air 06/13/17 08:12 97.9 86 19 109/74 99 Room Air 06/13/17 08:00 102 06/13/17 07:28 79 18 Room Air 06/13/17 04:00 97.7 74 20 100/65 97 Room Air 06/13/17 04:00 92 06/13/17 00:00 97.9 80 20 96/60 Room Air 06/13/17 00:00 83 06/12/17 20:00 97.7 78 20 102/66 95 Room Air 06/12/17 20:00 73 06/12/17 19:48 75 18 Room Air Intake and Output 06/13/17 06/14/17 19:00 07:00 Intake Total 350 ml Balance 350 ml Intake Oral 350 ml # Voids 5 # Bowel Movements 1 Laboratory Tests Test 06/13/17 07:00 White Blood Count 6.8 K/UL (4.8-10.8) Red Blood Count 3.57 M/UL (4.70-6.10) L Hemoglobin 10.0 G/DL (14.2-18.0) L Hematocrit 31.1 % (42.0-52.0) L Mean Corpuscular Volume 87 FL (80-99) Mean Corpuscular Hemoglobin 28.0 PG (27.0-31.0) Mean Corpuscular Hemoglobin Concent 32.1 G/DL (32.0-36.0) Red Cell Distribution Width 17.2 % (11.6-14.8) H Platelet Count 276 K/UL (150-450) Mean Platelet Volume 6.2 FL (6.5-10.1) L Neutrophils (%) (Auto) % (45.0-75.0) Lymphocytes (%) (Auto) % (20.0-45.0) Monocytes (%) (Auto) % (1.0-10.0) Eosinophils (%) (Auto) % (0.0-3.0) Basophils (%) (Auto) % (0.0-2.0) Differential Total Cells Counted 100 Neutrophils % (Manual) 28 % (45-75) L Lymphocytes % (Manual) 56 % (20-45) H Monocytes % (Manual) 13 % (1-10) H Eosinophils % (Manual) 3 % (0-3) Basophils % (Manual) 0 % (0-2) Band Neutrophils 0 % (0-8) Platelet Estimate Adequate Platelet Morphology Normal Hypochromasia 1+ Anisocytosis 1+ Erythrocyte Sedimentation Rate 68 MM/HR (0-20) H Reticulocyte Count 0.9 % (0.0-2.0) Prothrombin Time 12.8 SEC (9.30-11.50) H Prothromb Time International Ratio 1.2 (0.9-1.1) H Activated Partial Thromboplast Time 32 SEC (23-33) Sodium Level 141 mEQ/L (135-145) Potassium Level 3.7 mEQ/L (3.4-4.9) Chloride Level 107 mEQ/L (98-107) Carbon Dioxide Level 24 mEQ/L (20-30) Anion Gap 10 (5-15) Blood Urea Nitrogen 14 mg/dL (7-23) Creatinine 0.9 mg/dL (0.7-1.2) Estimat Glomerular Filtration Rate > 60 mL/min (>60) Glucose Level 102 mg/dL (74-106) Calcium Level 8.7 mg/dL (8.6-10.2) Phosphorus Level 4.1 mg/dL (2.5-4.8) Magnesium Level 1.8 mg/dL (1.7-2.5) Iron Level 21 ug/dL (59-158) L Total Iron Binding Capacity 368 ug/dL (250-400) Percent Iron Saturation 6 % (15-50) L Unsaturated Iron Binding 347 ug/dL (112-346) H Total Bilirubin 0.4 mg/dL (0.0-1.2) Aspartate Amino Transf (AST/SGOT) 43 U/L (5-40) H Alanine Aminotransferase (ALT/SGPT) 14 U/L (3-41) Alkaline Phosphatase 159 U/L (40-129) H Lactate Dehydrogenase 155 U/L (135-230) Total Protein 8.3 g/dL (6.6-8.7) Albumin 2.7 g/dL (3.5-5.2) L Globulin 5.6 g/dL Albumin/Globulin Ratio 0.4 (1.0-2.7) L Carcinoembryonic Antigen 1.7 ng/mL Vitamin B12 Level 665 pg/mL (211-946) Folate Pending Height (Feet): 5 Height (Inches): 6.00 Weight (Pounds): 120 Medications Current Medications Medications (Trade) Dose Ordered Sig/Alva Route PRN Reason Start Time Stop Time Status Last Admin Dose Admin Acetaminophen (Tylenol) 650 mg Q4H PRN ORAL FEVER 06/13/17 16:00 07/10/17 15:59 Albuterol/ Ipratropium (DuoNeb 0.5-3(2.5)mg/3ml) 3 ml EVERY 4 HOURS PRN HHN Shortness of Breath 06/13/17 18:00 06/15/17 17:59 Aspirin (ASA) 162 mg DAILY ORAL 06/14/17 09:00 07/11/17 08:59 Docusate Sodium (Colace) 100 mg TWICE A DAY ORAL 06/13/17 18:00 07/11/17 08:59 Enalaprilat (Vasotec) 2.5 mg EVERY 6 HOURS PRN IV sbp more than 160 06/13/17 18:00 07/10/17 22:29 Heparin Sodium (Porcine) (Heparin 5000 units/ml) 5,000 units EVERY 12 HOURS SUBQ 06/13/17 21:00 07/11/17 08:59 Levetiracetam 100 ml @ 400 mls/hr Q12HR IVPB 06/13/17 21:00 07/12/17 22:59 Lorazepam (Ativan 2mg/ml 1ml) 1 mg Q2H PRN IV For Anxiety 06/13/17 16:00 06/19/17 15:59 Magnesium Hydroxide (Mom) 30 ml DAILY PRN ORAL Constipation 06/13/17 16:00 07/13/17 15:59 Morphine Sulfate (Morphine Sulfate) 2 mg EVERY 4 HOURS PRN IVP severe Pain (Pain Scale 7-10) 06/13/17 17:00 06/17/17 22:29 Nitroglycerin (Ntg) 0.4 mg Every 5 Minutes PRN SL Prn Chest Pain 06/13/17 15:00 07/10/17 14:59 Ondansetron HCl (Zofran) 4 mg Q4H PRN ORAL Nausea & Vomiting 06/13/17 17:00 07/13/17 16:59 Pantoprazole (Protonix) 40 mg DAILY ORAL 06/14/17 09:00 07/11/17 08:59 Polyethylene Glycol (Miralax) 17 gm DAILYPRN PRN ORAL Constipation 06/13/17 18:00 07/10/17 17:59 Temazepam (Restoril) 15 mg HSPRN PRN ORAL Insomnia 06/13/17 21:00 06/17/17 20:59 Assessment/Plan Status: unchanged Assessment/Plan schizophrenia bipolar agitation -olanzapine 10mg qhs -haldol prn Ari Cannon M.D. Jun 13, 2017 16:59
[2017-06-13] MEDS ORDERED: Haloperidol 5mg/ml Inj IM PRN (17:00)
[2017-06-13] MEDS ORDERED: Morphine Sulfate 2mg/ml Inj IVP PRN (17:00)
[2017-06-13] MEDS ORDERED: Enalaprilat 2.5mg/2ml Inj IV PRN (18:00)
[2017-06-13] MEDS ORDERED: DuoNeb 0.5-3(2.5)mg/3ml neb HHN PRN (18:00)
[2017-06-13] MEDS ORDERED: Miralax 17gm pkt ORAL PRN (18:00)
--- NOTE | 2017-06-13 21:14 | Neurology Progress Note ---
Interim History Interim History Interim History Mr. Celeste feels better today. He is awake and alert. He is cooperative. He denies any new problems. He has had no witnessed seizures. He says he is taking his medicines regularly. Review of Systems Neuro Review of Systems Benign. Objective Physical Exam Last Vital Signs Date Time Temp Pulse Resp B/P (MAP) Pulse Ox O2 Delivery O2 Flow Rate FiO2 06/13/17 20:00 98.4 85 18 102/58 98 Room Air 06/12/17 16:12 10.0 06/11/17 19:44 21 Laboratory Tests Test 06/13/17 07:00 White Blood Count 6.8 K/UL (4.8-10.8) Red Blood Count 3.57 M/UL (4.70-6.10) L Hemoglobin 10.0 G/DL (14.2-18.0) L Hematocrit 31.1 % (42.0-52.0) L Mean Corpuscular Volume 87 FL (80-99) Mean Corpuscular Hemoglobin 28.0 PG (27.0-31.0) Mean Corpuscular Hemoglobin Concent 32.1 G/DL (32.0-36.0) Red Cell Distribution Width 17.2 % (11.6-14.8) H Platelet Count 276 K/UL (150-450) Mean Platelet Volume 6.2 FL (6.5-10.1) L Neutrophils (%) (Auto) % (45.0-75.0) Lymphocytes (%) (Auto) % (20.0-45.0) Monocytes (%) (Auto) % (1.0-10.0) Eosinophils (%) (Auto) % (0.0-3.0) Basophils (%) (Auto) % (0.0-2.0) Differential Total Cells Counted 100 Neutrophils % (Manual) 28 % (45-75) L Lymphocytes % (Manual) 56 % (20-45) H Monocytes % (Manual) 13 % (1-10) H Eosinophils % (Manual) 3 % (0-3) Basophils % (Manual) 0 % (0-2) Band Neutrophils 0 % (0-8) Platelet Estimate Adequate Platelet Morphology Normal Hypochromasia 1+ Anisocytosis 1+ Erythrocyte Sedimentation Rate 68 MM/HR (0-20) H Reticulocyte Count 0.9 % (0.0-2.0) Prothrombin Time 12.8 SEC (9.30-11.50) H Prothromb Time International Ratio 1.2 (0.9-1.1) H Activated Partial Thromboplast Time 32 SEC (23-33) Sodium Level 141 mEQ/L (135-145) Potassium Level 3.7 mEQ/L (3.4-4.9) Chloride Level 107 mEQ/L (98-107) Carbon Dioxide Level 24 mEQ/L (20-30) Anion Gap 10 (5-15) Blood Urea Nitrogen 14 mg/dL (7-23) Creatinine 0.9 mg/dL (0.7-1.2) Estimat Glomerular Filtration Rate > 60 mL/min (>60) Glucose Level 102 mg/dL (74-106) Calcium Level 8.7 mg/dL (8.6-10.2) Phosphorus Level 4.1 mg/dL (2.5-4.8) Magnesium Level 1.8 mg/dL (1.7-2.5) Iron Level 21 ug/dL (59-158) L Total Iron Binding Capacity 368 ug/dL (250-400) Percent Iron Saturation 6 % (15-50) L Unsaturated Iron Binding 347 ug/dL (112-346) H Total Bilirubin 0.4 mg/dL (0.0-1.2) Aspartate Amino Transf (AST/SGOT) 43 U/L (5-40) H Alanine Aminotransferase (ALT/SGPT) 14 U/L (3-41) Alkaline Phosphatase 159 U/L (40-129) H Lactate Dehydrogenase 155 U/L (135-230) Total Protein 8.3 g/dL (6.6-8.7) Albumin 2.7 g/dL (3.5-5.2) L Globulin 5.6 g/dL Albumin/Globulin Ratio 0.4 (1.0-2.7) L Carcinoembryonic Antigen 1.7 ng/mL Vitamin B12 Level 665 pg/mL (211-946) Folate Pending Neurologic Exam Objective PHYSICAL EXAMINATION: GENERAL: He is a well-developed, but lean gentleman, lying in bed, in no acute distress. HEAD: Normocephalic with recent subdural hematoma evacuation scar on the left scalp with dehiscence of the wound in the parietooccipital area. EENT: Examination benign. NECK: No neck rigidity was observed. NEUROLOGIC EXAMINATION: MENTAL STATUS EXAMINATION: He was awake and alert. He was oriented to self only. He was able to recall 3/3 words immediately but could not remember them in 1 and 3 minutes. He was unable to remember who the present and prior presidents are. SPEECH: He had a moderate dysarthria. LANGUAGE: He was able to comprehend and express himself well. CRANIAL NERVE EXAMINATION: II: Visual reynolds were intact to confrontation. III, IV & : The external ocular movements were full and the pupils 3 mm in diameter, equal, round, regular, and reactive to light. V: He had normal facial sensations and the temporales, masseters, and pterygoids functioned normally. VII: He had flattening of the right nasolabial fold. VIII: He was able to hear well bilaterally and had no nystagmus. IX: The palate moved symmetrically on phonation. X: He had no hoarseness of voice. XI: The sternocleidomastoids and trapezii functioned normally. XII: The tongue was in the midline without any fasciculations or atrophy. MOTOR SYSTEM: The tone was normal in all four extremities. Examination of muscle mass revealed no focal wasting. Examination of power revealed G 5/5 power. SENSORY EXAMINATION: He was able to discern light touch all over. REFLEXES: 1++ on the right and 1+ on the left at the biceps, triceps, brachioradialis, and knees and 0 at both ankles. The plantar responses were flexor bilaterally. COORDINATION: He performed well in finger to nose and heel to suárez testing. STANCE & GAIT: Were deferred. Impression/Recommendations Diagnostic Impression 1. Mr. Patrick Celeste is a 57-year-old, right-handed, gentleman, who does have a past history of hypertension, diabetes mellitus, alcohol abuse, seizure disorder of unknown type, and left subdural hematoma status post drainage with problems with wound healing, who apparently became combative at his halfway and refused to take his medicines as a result of which, he was hospitalized at [facility]. 2. He feels much better today and is behaving well. 3. On neurological examination, at this time, he does have problems with orientation, memory and other cognitive function. He also has a right VII central facial paresis and brisker reflexes on the right side compared to the left, but the reflexes are globally diminished. 4. Laboratory data on admission revealed that he was mildly anemic with a hemoglobin of 10.4. His chemistry panel revealed a sodium, which was low at 133 , a glucose that was elevated to 236, an alkaline phosphatase elevated to 167, and albumin that was low at 3.0. Further laboratory tests revealed that his TSH was normal at 2.5 and hemoglobin A1c was also normal at 5.7. 5. The EEG done on 06/12/17 revealed a mild encephalopathy, left fronto-centro- temporal focal dysfunction, and a right mid- and posterior- temporal epileptogenic focus with inter-ictal discharges. 6. The CT of the brain done on 06/11/17 revealed no subdural hematoma. However evidence of relatively recent left craniotomy with a small focus of pneumocephalus still present, and signs of encephalomalacia within the left temporal lobe.were seen. 7. The patient's history, neurological examination, and laboratory data are most compatible with behavioral problems following traumatic brain injury. He also seems to have significant cognitive problems, which may be related to the head trauma or due to other reasons. He does have a mild right paresis with brisker reflexes on the right side. Recommendations 1. Continue present management. 2. Continue the patient on Keppra 1 g q.12 hours but change to IV form as he is refusing PO medicines. 3. Treatment of behavioral problems as per psychiatrist. Hyacinth Spence M.D., M.S.P.HYACINTH ALANIZ Jun 13, 2017 21:14
[2017-06-13] MEDS ORDERED: Ipratropium 0.02% Inh Soln 2.5ml UD ONE (23:52)
[2017-06-13] MEDS ORDERED: Albuterol ud Inhalation ONE (23:52)
[2017-06-14 04:00] VITALS: BP 105/61
[2017-06-14 08:10] VITALS: BP 112/64
[2017-06-14] MEDS: ZyPREXA Zydis 10mg tab ORAL SCH ×2 (09:00→10:11)
[2017-06-14] MEDS: Docusate 100mg cap ORAL SCH ×3 (09:00→18:00)
[2017-06-14] MEDS: levETIRAcetam 1,000mg/NS100ml 100 ML IVPB SCH (10:08)
[2017-06-14] MEDS: Heparin 5000 units/ml inj SUBQ SCH ×2 (10:11→21:02)
[2017-06-14] MEDS: Aspirin Baby 81mg ORAL SCH (10:12)
[2017-06-14 11:51] VITALS: BP 96/61
--- NOTE | 2017-06-14 15:12 | Pulmonology Progress Note ---
Assessment/Plan Assessment/Plan ASSESSMENT seizure disorder encephalopathy left craniotomy DM TBI schizophrenia bipolar disorder PLAN OF CARE MS floor CT head no subdural hematoma + recent L craniotomy CXR negative ECHO with EF 60% and RVSP of 25 seizure precautions continue Keppra, change to oral route EEG with mild encephalopathy per neuro psych follows on Zyprexa and Haldol prn behavior appropriate O2 HHN prn continue ASA DVT prophylaxis PT/OT dc today case discussed and evaluated by supervising physician Subjective Allergies: Coded Allergies: No Known Allergies (Unverified , 06/10/17) Subjective no seizure activity tolerates diet still on IV keppra Objective Last 24 Hour Vital Signs Date Time Temp Pulse Resp B/P (MAP) Pulse Ox O2 Delivery O2 Flow Rate FiO2 06/14/17 11:51 97.7 91 19 96/61 97 Room Air 06/14/17 08:10 97.7 116 20 112/64 100 Room Air 06/14/17 07:58 114 15 Room Air 06/14/17 04:00 97.9 66 20 105/61 96 Room Air 06/13/17 23:47 98.2 79 18 100/58 97 Room Air 06/13/17 21:41 86 15 Room Air 06/13/17 20:00 98.4 85 18 102/58 98 Room Air 06/13/17 16:15 97.0 82 21 101/58 97 Room Air Intake and Output 06/14/17 06/15/17 19:00 07:00 Intake Total 600 ml Balance 600 ml Intake Oral 600 ml # Voids 4 General Appearance: no acute distress, other - awake, alert, responsive, Samoan speaking male HEENT: supple, no JVD, other - left craniotomy Respiratory/Chest: lungs clear, no respiratory distress, no accessory muscle use Cardiovascular: normal rate, regular rhythm, no JVD Abdomen: normal bowel sounds, soft, non tender, non distended Genitourinary: normal external genitalia Extremities: no edema, pedal pulses normal Neurologic/Psychiatric: alert, responsive Musculoskeletal: normal muscle bulk Current Medications Medications (Trade) Dose Ordered Sig/Alva Route PRN Reason Start Time Stop Time Status Last Admin Dose Admin Acetaminophen (Tylenol) 650 mg Q4H PRN ORAL FEVER 06/13/17 16:00 07/10/17 15:59 Albuterol/ Ipratropium (DuoNeb 0.5-3(2.5)mg/3ml) 3 ml EVERY 4 HOURS PRN HHN Shortness of Breath 06/13/17 18:00 06/15/17 17:59 Aspirin (ASA) 162 mg DAILY ORAL 06/14/17 09:00 07/11/17 08:59 06/14/17 10:12 Docusate Sodium (Colace) 100 mg TWICE A DAY ORAL 06/13/17 18:00 07/11/17 08:59 06/13/17 18:07 Enalaprilat (Vasotec) 2.5 mg EVERY 6 HOURS PRN IV sbp more than 160 06/13/17 18:00 07/10/17 22:29 Haloperidol Lactate (Haldol) 5 mg Q6H PRN IM Agitation 06/13/17 17:00 07/13/17 16:59 Heparin Sodium (Porcine) (Heparin 5000 units/ml) 5,000 units EVERY 12 HOURS SUBQ 06/13/17 21:00 07/11/17 08:59 06/14/17 10:11 Levetiracetam 100 ml @ 400 mls/hr Q12HR IVPB 06/13/17 21:00 07/12/17 22:59 06/14/17 10:08 Lorazepam (Ativan 2mg/ml 1ml) 1 mg Q2H PRN IV For Anxiety 06/13/17 16:00 06/19/17 15:59 Magnesium Hydroxide (Mom) 30 ml DAILY PRN ORAL Constipation 06/13/17 16:00 07/13/17 15:59 Morphine Sulfate (Morphine Sulfate) 2 mg EVERY 4 HOURS PRN IVP severe Pain (Pain Scale 7-10) 06/13/17 17:00 06/17/17 22:29 Nitroglycerin (Ntg) 0.4 mg Every 5 Minutes PRN SL Prn Chest Pain 06/13/17 15:00 07/10/17 14:59 Olanzapine (ZyPREXA Zydis) 10 mg DAILY ORAL 06/14/17 09:00 07/14/17 08:59 Ondansetron HCl (Zofran) 4 mg Q4H PRN ORAL Nausea & Vomiting 06/13/17 17:00 07/13/17 16:59 Pantoprazole (Protonix) 40 mg DAILY ORAL 06/14/17 09:00 07/11/17 08:59 Polyethylene Glycol (Miralax) 17 gm DAILYPRN PRN ORAL Constipation 06/13/17 18:00 07/10/17 17:59 Risperidone (RisperDAL) 2 mg BEDTIME ORAL 06/13/17 21:00 07/13/17 20:59 06/13/17 21:50 Temazepam (Restoril) 15 mg HSPRN PRN ORAL Insomnia 06/13/17 21:00 06/17/17 20:59 [facility] VillanuevaNortheast Health SystemTamiko Smith NP Jun 14, 2017 15:12
[2017-06-14] MEDS ORDERED: DuoNeb 0.5-3(2.5)mg/3ml neb HHN PRN (15:15)
[2017-06-14] MEDS ORDERED: ASPIRIN81 MG ORAL (15:28)
[2017-06-14] MEDS ORDERED: ZYPREXA ZYDIS10 MG ORAL (15:28)
[2017-06-14 15:47] VITALS: BP 105/68
[2017-06-14 20:00] VITALS: BP 103/67
[2017-06-14 20:13] LABS: VITAMIN D 25-OH TOTAL 15 ng/mL (.)
--- NOTE | 2017-06-14 21:25 | Neurology Progress Note ---
Interim History Interim History Interim History Mr. Celeste feels better. He is awake and alert. He is cooperative. He denies any new problems. He has had no witnessed seizures. He says he is taking his medicines regularly. Review of Systems Neuro Review of Systems Benign. Objective Physical Exam Last Vital Signs Date Time Temp Pulse Resp B/P (MAP) Pulse Ox O2 Delivery O2 Flow Rate FiO2 06/14/17 20:00 97.7 83 19 103/67 99 Room Air 06/12/17 16:12 10.0 06/11/17 19:44 21 Neurologic Exam Objective PHYSICAL EXAMINATION: GENERAL: He is a well-developed, but lean gentleman, lying in bed, in no acute distress. HEAD: Normocephalic with recent subdural hematoma evacuation scar on the left scalp with dehiscence of the wound in the parietooccipital area. EENT: Examination benign. NECK: No neck rigidity was observed. NEUROLOGIC EXAMINATION: MENTAL STATUS EXAMINATION: He was awake and alert. He was oriented to self only. He was able to recall 3/3 words immediately but could not remember them in 1 and 3 minutes. He was unable to remember who the present and prior presidents are. SPEECH: He had a moderate dysarthria. LANGUAGE: He was able to comprehend and express himself well. CRANIAL NERVE EXAMINATION: II: Visual reynolds were intact to confrontation. III, IV & : The external ocular movements were full and the pupils 3 mm in diameter, equal, round, regular, and reactive to light. V: He had normal facial sensations and the temporales, masseters, and pterygoids functioned normally. VII: He had flattening of the right nasolabial fold. VIII: He was able to hear well bilaterally and had no nystagmus. IX: The palate moved symmetrically on phonation. X: He had no hoarseness of voice. XI: The sternocleidomastoids and trapezii functioned normally. XII: The tongue was in the midline without any fasciculations or atrophy. MOTOR SYSTEM: The tone was normal in all four extremities. Examination of muscle mass revealed no focal wasting. Examination of power revealed G 5/5 power. SENSORY EXAMINATION: He was able to discern light touch all over. REFLEXES: 1++ on the right and 1+ on the left at the biceps, triceps, brachioradialis, and knees and 0 at both ankles. The plantar responses were flexor bilaterally. COORDINATION: He performed well in finger to nose and heel to suárez testing. STANCE & GAIT: Were deferred. Impression/Recommendations Diagnostic Impression 1. Mr. Patrick Celeste is a 57-year-old, right-handed, gentleman, who does have a past history of hypertension, diabetes mellitus, alcohol abuse, seizure disorder of unknown type, and left subdural hematoma status post drainage with problems with wound healing, who apparently became combative at his retirement and refused to take his medicines as a result of which, he was hospitalized at [facility]. 2. He continues to feel much better today, is behaving well, and has been seizure-free. 3. On neurological examination, at this time, he does have problems with orientation, memory and other cognitive function. He also has a right VII central facial paresis and brisker reflexes on the right side compared to the left, but the reflexes are globally diminished. 4. Laboratory data on admission revealed that he was mildly anemic with a hemoglobin of 10.4. His chemistry panel revealed a sodium, which was low at 133 , a glucose that was elevated to 236, an alkaline phosphatase elevated to 167, and albumin that was low at 3.0. Further laboratory tests revealed that his TSH was normal at 2.5 and hemoglobin A1c was also normal at 5.7. 5. The EEG done on 06/12/17 revealed a mild encephalopathy, left fronto-centro- temporal focal dysfunction, and a right mid- and posterior- temporal epileptogenic focus with inter-ictal discharges. 6. The CT of the brain done on 06/11/17 revealed no subdural hematoma. However evidence of relatively recent left craniotomy with a small focus of pneumocephalus still present, and signs of encephalomalacia within the left temporal lobe.were seen. 7. The patient's history, neurological examination, and laboratory data are most compatible with behavioral problems following traumatic brain injury. He also seems to have significant cognitive problems, which may be related to the head trauma or due to other reasons. 8. He does have a mild right paresis with brisker reflexes on the right side. Recommendations 1. Continue present management. 2. Continue the patient on Keppra 1 g q.12 hours. 3. Treatment of behavioral problems as per psychiatrist. Hyacinth Salmeron M.D., M.S.P.H. HYACINTH SALMERON Jun 14, 2017 21:25
[2017-06-15 00:10] VITALS: BP 110/60
[2017-06-15 04:00] VITALS: BP 119/68
[2017-06-15 08:00] VITALS: BP 110/60
[2017-06-15] MEDS: Docusate 100mg cap ORAL SCH ×2 (08:28→17:59)
[2017-06-15] MEDS: Heparin 5000 units/ml inj SUBQ SCH ×2 (08:29→20:16)
[2017-06-15] MEDS: ZyPREXA Zydis 10mg tab ORAL SCH (08:29)
[2017-06-15] MEDS: Aspirin Baby 81mg ORAL SCH (09:01)
[2017-06-15 12:01] VITALS: BP 114/71
--- NOTE | 2017-06-15 14:19 | GI Initial Consult Note ---
History of Present Illness General Date patient seen: Jun 15, 2017 Time patient seen: 13:00 Reason for Hospitalization: Altered Level of Consciousness Referring physician: RONAK WHITE Reason for Consultation: ANEMIA Present Illness HPI [id number] BIBEMS from [facility] for "not taking his medication" and "being combative with staff" when they were trying to give him his PO Keppra. Patient was just DCed from outside hospital to SNF yesterday after ?debridement to craniotomy site after he had ICH s/p craniotomy in April. Patient with history of DM as well. Patient calm, cooperative in ED - answering questions, appropriate EMS Rhythm strip is NSR. No ischemia. Fingerstick ~200 per EMS History of ETOH abuse GI Consult. HPI as noted above. GI consulted for OB stool positive and anemia. ROS limited, AMS. No active s/sx N/V/D. Unknown history of endoscopic procedures. Home Meds Reported Medications Magnesium Hydroxide* (MILK OF MAGNESIA*) 400 Mg/5 Ml Oral.susp, 30 ML ORAL PRN, ML 06/10/17 Ondansetron* (ZOFRAN*) 4 Mg Tablet, 4 MG ORAL Q4HR Y for Nausea & Vomiting, TAB 06/10/17 Acetaminophen (ACETAMINOPHEN) 500 Mg Capsule, 650 MG PO EVERY 4 HOURS, CAP 06/10/17 Docusate Sodium* (DOCUSATE SODIUM*) 100 Mg Capsule, 100 MG ORAL TWICE A DAY, CAP 06/10/17 Levetiracetam (KEPPRA) 1,000 Mg Tablet, 1000 MG ORAL BID, #30 TAB 0 Refills 06/10/17 Famotidine (PEPCID) 20 Mg Tablet, 20 MG ORAL BID, #7 TAB 0 Refills 06/10/17 Med list reviewed/reconciled: Yes Allergies: Coded Allergies: No Known Allergies (Unverified , 06/10/17) Patient History Limited by: medical condition History Provided By: Medical Record PMH Narrative Past Surgical History: other - Craniotomy Pertinent Family History: none Social History: Reports: smoking Social History: Denies: smoking, alcohol use, drug use, other Review of Systems All Other Systems: limited Physical Exam Vital Signs Date Time Temp Pulse Resp B/P (MAP) Pulse Ox O2 Delivery O2 Flow Rate FiO2 06/11/17 08:00 97.7 75 20 119/75 99 Room Air 06/11/17 19:44 21 06/12/17 16:12 10.0 Sp02 EP Interpretation: reviewed Labs Laboratory Tests Test 06/14/17 17:14 Stool Occult Blood Positive (NEGATIVE) General Appearance: well appearing, no apparent distress Head: normocephalic EENT: PERRL/EOMI, normal ENT inspection, TMs normal Neck: supple Respiratory: normal breath sounds, no respiratory distress Cardiovascular: normal rate Gastrointestinal: non tender, soft, normal bowel sounds Rectal: deferred Musculoskeletal: back normal Neurologic: alert, responsive Skin: normal inspection, normal color, no rash, warm/dry Lymphatic: normal inspection, no adenopathy Current Medications Current Medications Medications (Trade) Dose Ordered Sig/Alva Route PRN Reason Start Time Stop Time Status Last Admin Dose Admin Acetaminophen (Tylenol) 650 mg Q4H PRN ORAL FEVER 06/13/17 16:00 07/10/17 15:59 Albuterol/ Ipratropium (DuoNeb 0.5-3(2.5)mg/3ml) 3 ml Q4H PRN HHN Shortness of Breath 06/14/17 15:15 06/19/17 15:14 Aspirin (ASA) 162 mg DAILY ORAL 06/14/17 09:00 07/11/17 08:59 06/15/17 09:01 Docusate Sodium (Colace) 100 mg TWICE A DAY ORAL 06/13/17 18:00 07/11/17 08:59 06/13/17 18:07 Enalaprilat (Vasotec) 2.5 mg EVERY 6 HOURS PRN IV sbp more than 160 06/13/17 18:00 07/10/17 22:29 Haloperidol Lactate (Haldol) 5 mg Q6H PRN IM Agitation 06/13/17 17:00 07/13/17 16:59 Heparin Sodium (Porcine) (Heparin 5000 units/ml) 5,000 units EVERY 12 HOURS SUBQ 06/13/17 21:00 07/11/17 08:59 06/14/17 21:02 Levetiracetam (Keppra) 1,000 mg Q12HR ORAL 06/14/17 21:00 07/14/17 20:59 06/15/17 09:01 Lorazepam (Ativan 2mg/ml 1ml) 1 mg Q2H PRN IV For Anxiety 06/13/17 16:00 06/19/17 15:59 Magnesium Hydroxide (Mom) 30 ml DAILY PRN ORAL Constipation 06/13/17 16:00 07/13/17 15:59 Morphine Sulfate (Morphine Sulfate) 2 mg EVERY 4 HOURS PRN IVP severe Pain (Pain Scale 7-10) 06/13/17 17:00 06/17/17 22:29 Nitroglycerin (Ntg) 0.4 mg Every 5 Minutes PRN SL Prn Chest Pain 06/13/17 15:00 07/10/17 14:59 Olanzapine (ZyPREXA Zydis) 10 mg DAILY ORAL 06/14/17 09:00 07/14/17 08:59 Ondansetron HCl (Zofran) 4 mg Q4H PRN ORAL Nausea & Vomiting 06/13/17 17:00 07/13/17 16:59 Pantoprazole (Protonix) 40 mg DAILY ORAL 06/14/17 09:00 07/11/17 08:59 Polyethylene Glycol (Miralax) 17 gm DAILYPRN PRN ORAL Constipation 06/13/17 18:00 07/10/17 17:59 Risperidone (RisperDAL) 2 mg BEDTIME ORAL 06/13/17 21:00 07/13/17 20:59 06/14/17 20:59 Temazepam (Restoril) 15 mg HSPRN PRN ORAL Insomnia 06/13/17 21:00 06/17/17 20:59 GI: Plan Problems: (1) Anemia (2) Occult blood in stools (3) Colonoscopy planned (4) Diabetes mellitus Plan EGD/colonoscopy scheduled for tomorrow. - unable to obtain consent >> 2 MD signature will be obtained - ZHAO, NPO @ [place]. - hold all blood thinners tonight. monitor H&H, prn transfusion ppi fu labs Discussed with Dr. Moe. Thank you for referring this patient, we will follow. Maliha Faith N.P. Jun 15, 2017 14:19
--- NOTE | 2017-06-15 15:26 | Pulmonology Progress Note ---
Assessment/Plan Problems: (1) Seizure disorder (2) Behavioral change (3) H/O craniotomy (4) History of intracranial injury (5) Diabetes mellitus Assessment/Plan improving colonoscopy in am all enzymes negative pt/ot med/surg psych evaluation Subjective ROS Limited/Unobtainable: No Constitutional: Reports: no symptoms HEENT: Repors: no symptoms Respiratory: Reports: no symptoms Allergies: Coded Allergies: No Known Allergies (Unverified , 06/10/17) Objective Last 24 Hour Vital Signs Date Time Temp Pulse Resp B/P (MAP) Pulse Ox O2 Delivery O2 Flow Rate FiO2 06/15/17 12:01 98.4 92 20 114/71 97 Room Air 06/15/17 08:00 97.8 85 20 110/60 96 Room Air 06/15/17 07:56 117 14 Room Air 06/15/17 04:00 98.0 79 20 119/68 98 Room Air 06/15/17 00:10 97.9 75 18 110/60 98 Room Air 06/14/17 20:00 97.7 83 19 103/67 99 Room Air 06/14/17 19:07 85 14 Room Air 06/14/17 15:47 98.2 92 20 105/68 95 Room Air Intake and Output 06/15/17 06/16/17 19:00 07:00 Intake Total 870 ml Balance 870 ml Intake Oral 870 ml # Voids 1 # Bowel Movements 1 General Appearance: WD/WN HEENT: normocephalic, atraumatic Respiratory/Chest: chest wall non-tender, lungs clear Cardiovascular: normal peripheral pulses, normal rate Abdomen: normal bowel sounds, soft, non tender Genitourinary: normal external genitalia Extremities: no cyanosis Skin: no lesions Neurologic/Psychiatric: implement mechanic II-XII grossly normal, alert, normal mood/affect Laboratory Tests 06/14/17 17:14: Stool Occult Blood Positive Current Medications Medications (Trade) Dose Ordered Sig/Alva Route PRN Reason Start Time Stop Time Status Last Admin Dose Admin Acetaminophen (Tylenol) 650 mg Q4H PRN ORAL FEVER 06/13/17 16:00 07/10/17 15:59 Albuterol/ Ipratropium (DuoNeb 0.5-3(2.5)mg/3ml) 3 ml Q4H PRN HHN Shortness of Breath 06/14/17 15:15 06/19/17 15:14 Aspirin (ASA) 162 mg DAILY ORAL 06/14/17 09:00 07/11/17 08:59 06/15/17 09:01 Bisacodyl (Dulcolax) 10 mg ONCE ONCE ORAL 06/15/17 16:00 06/15/17 16:01 Docusate Sodium (Colace) 100 mg TWICE A DAY ORAL 06/13/17 18:00 07/11/17 08:59 06/13/17 18:07 Enalaprilat (Vasotec) 2.5 mg EVERY 6 HOURS PRN IV sbp more than 160 06/13/17 18:00 07/10/17 22:29 Haloperidol Lactate (Haldol) 5 mg Q6H PRN IM Agitation 06/13/17 17:00 07/13/17 16:59 Heparin Sodium (Porcine) (Heparin 5000 units/ml) 5,000 units EVERY 12 HOURS SUBQ 06/13/17 21:00 07/11/17 08:59 06/14/17 21:02 Levetiracetam (Keppra) 1,000 mg Q12HR ORAL 06/14/17 21:00 07/14/17 20:59 06/15/17 09:01 Lorazepam (Ativan 2mg/ml 1ml) 1 mg Q2H PRN IV For Anxiety 06/13/17 16:00 06/19/17 15:59 Magnesium Hydroxide (Mom) 30 ml DAILY PRN ORAL Constipation 06/13/17 16:00 07/13/17 15:59 Magnesium Citrate (Citrate Of Magnesia) 300 ml ONCE ONCE ORAL 06/15/17 16:00 06/15/17 16:01 Morphine Sulfate (Morphine Sulfate) 2 mg EVERY 4 HOURS PRN IVP severe Pain (Pain Scale 7-10) 06/13/17 17:00 06/17/17 22:29 Nitroglycerin (Ntg) 0.4 mg Every 5 Minutes PRN SL Prn Chest Pain 06/13/17 15:00 07/10/17 14:59 Olanzapine (ZyPREXA Zydis) 10 mg DAILY ORAL 06/14/17 09:00 07/14/17 08:59 Ondansetron HCl (Zofran) 4 mg Q4H PRN ORAL Nausea & Vomiting 06/13/17 17:00 103/17 16:59 Pantoprazole (Protonix) 40 mg DAILY ORAL 06/14/17 09:00 07/11/17 08:59 Polyethylene Glycol (Miralax) 17 gm DAILYPRN PRN ORAL Constipation 06/13/17 18:00 07/10/17 17:59 Polyethylene Glycol (Miralax) 238 gm ONCE ONCE ORAL 06/15/17 16:00 06/15/17 16:01 Risperidone (RisperDAL) 2 mg BEDTIME ORAL 06/13/17 21:00 07/13/17 20:59 06/14/17 20:59 Temazepam (Restoril) 15 mg HSPRN PRN ORAL Insomnia 06/13/17 21:00 06/17/17 20:59 RONAK SAMANO Jun 15, 2017 15:26
[2017-06-15 15:49] VITALS: BP 114/73
[2017-06-15] MEDS ORDERED: Magnesium Citrate Liq Btl ORAL ONE (16:00)
[2017-06-15] MEDS ORDERED: Polyethylene Glycol 238gm bottle ORAL ONE (16:00)
[2017-06-15] MEDS ORDERED: Bisacodyl EC 5mg tab ORAL ONE (16:00)
[2017-06-15 19:44] VITALS: BP 102/62
--- NOTE | 2017-06-15 22:30 | Neurology Progress Note ---
Interim History Interim History Interim History Mr. Celeste feels better. He is awake and alert. He is cooperative. He denies any new problems. He has had no witnessed seizures. He has been taking his medicines regularly. Plans are for a colonoscopy tomorrow. Review of Systems Neuro Review of Systems Benign. Objective Physical Exam Last Vital Signs Date Time Temp Pulse Resp B/P (MAP) Pulse Ox O2 Delivery O2 Flow Rate FiO2 06/15/17 19:46 87 14 Room Air 06/15/17 19:44 97.6 102/62 98 06/12/17 16:12 10.0 06/11/17 19:44 21 Neurologic Exam Objective PHYSICAL EXAMINATION: GENERAL: He is a well-developed, but lean gentleman, lying in bed, in no acute distress. HEAD: Normocephalic with recent subdural hematoma evacuation scar on the left scalp with dehiscence of the wound in the parietooccipital area. EENT: Examination benign. NECK: No neck rigidity was observed. NEUROLOGIC EXAMINATION: MENTAL STATUS EXAMINATION: He was awake and alert. He was oriented to self only. He was able to recall 3/3 words immediately but could not remember them in 1 and 3 minutes. He was unable to remember who the present and prior presidents are. SPEECH: He had a moderate dysarthria. LANGUAGE: He was able to comprehend and express himself well. CRANIAL NERVE EXAMINATION: II: Visual reynolds were intact to confrontation. III, IV & : The external ocular movements were full and the pupils 3 mm in diameter, equal, round, regular, and reactive to light. V: He had normal facial sensations and the temporales, masseters, and pterygoids functioned normally. VII: He had flattening of the right nasolabial fold. VIII: He was able to hear well bilaterally and had no nystagmus. IX: The palate moved symmetrically on phonation. X: He had no hoarseness of voice. XI: The sternocleidomastoids and trapezii functioned normally. XII: The tongue was in the midline without any fasciculations or atrophy. MOTOR SYSTEM: The tone was normal in all four extremities. Examination of muscle mass revealed no focal wasting. Examination of power revealed G 5/5 power. SENSORY EXAMINATION: He was able to discern light touch all over. REFLEXES: 1++ on the right and 1+ on the left at the biceps, triceps, brachioradialis, and knees and 0 at both ankles. The plantar responses were flexor bilaterally. COORDINATION: He performed well in finger to nose and heel to suárez testing. STANCE & GAIT: Were deferred. Impression/Recommendations Diagnostic Impression 1. Mr. Patrick Celeste is a 57-year-old, right-handed, gentleman, who does have a past history of hypertension, diabetes mellitus, alcohol abuse, seizure disorder of unknown type, and left subdural hematoma status post drainage with problems with wound healing, who apparently became combative at his detention and refused to take his medicines as a result of which, he was hospitalized at [facility]. 2. He continues to feel better, is behaving well, and has been seizure-free. 3. On neurological examination, at this time, he does have problems with orientation, memory and other cognitive function. He also has a right VII central facial paresis and brisker reflexes on the right side compared to the left, but the reflexes are globally diminished. 4. Laboratory data on admission revealed that he was mildly anemic with a hemoglobin of 10.4. His chemistry panel revealed a sodium, which was low at 133 , a glucose that was elevated to 236, an alkaline phosphatase elevated to 167, and albumin that was low at 3.0. Further laboratory tests revealed that his TSH was normal at 2.5 and hemoglobin A1c was also normal at 5.7. 5. The EEG done on 06/12/17 revealed a mild encephalopathy, left fronto-centro- temporal focal dysfunction, and a right mid- and posterior- temporal epileptogenic focus with inter-ictal discharges. 6. The CT of the brain done on 06/11/17 revealed no subdural hematoma. However evidence of relatively recent left craniotomy with a small focus of pneumocephalus still present, and signs of encephalomalacia within the left temporal lobe.were seen. 7. The patient's history, neurological examination, and laboratory data are most compatible with behavioral problems following traumatic brain injury. He also seems to have significant cognitive problems, which may be related to the head trauma or due to other reasons. 8. He does have a mild right paresis with brisker reflexes on the right side. Recommendations 1. Continue present management. 2. Continue the patient on Keppra 1 g q.12 hours. 3. Treatment of behavioral problems as per psychiatrist. Hyacinth Salmeron M.D., M.S.P.H. HYACINTH SALMERON Jun 15, 2017 22:30
[2017-06-16] VITALS (9 sets, daily range): BP systolic 108–121; BP diastolic 69–80
--- NOTE | 2017-06-16 06:28 | Anethesia Preoperative Eval ---
Anesthesia Pre-op PMH/ROS General Date of Evaluation: Jun 16, 2017 Time of Evaluation: 06:25 Anesthesiologist: lauryn ASA Score: ASA 3 Mallampati Score Class I : Soft palate, uvula, fauces, pillars visible Class II: Soft palate, uvula, fauces visible Class III: Soft palate, base of uvula visible Class IV: Only hard plate visible Mallampati Classification: Class II Surgeon: ida Diagnosis: anemia Surgical Procedure: egd/colonoscopy Anesthesia History: none Social History: alcohol use Family History: no anesthesia problems Allergies: Coded Allergies: No Known Allergies (Unverified , 06/10/17) Medications: see eMAR Past Medical History Neurologic/Psychiatric: Reports: other - saizures Endocrine: Reports: DM Anesthesia Pre-op Phys. Exam Physician Exam Last Vital Signs Date Time Temp Pulse Resp B/P (MAP) Pulse Ox O2 Delivery O2 Flow Rate FiO2 06/16/17 03:54 97.6 69 21 113/69 Room Air 06/15/17 19:44 98 06/12/17 16:12 10.0 06/11/17 19:44 21 Constitutional: NAD Neurologic: CN 2-12 intact Cardiovascular: RRR Respiratory: CTA Gastrointestinal: S/NT/ND Airway Exam Mallampati Score: Class II MO: full Neck: supple TMD: 2fb ROM: full Teeth: missing, broken Anesthesia Pre-op A/P Labs Labs Test 06/13/17 07:00 06/14/17 17:14 White Blood Count 6.8 K/UL (4.8-10.8) Red Blood Count 3.57 M/UL (4.70-6.10) Hemoglobin 10.0 G/DL (14.2-18.0) Hematocrit 31.1 % (42.0-52.0) Mean Corpuscular Volume 87 FL (80-99) Mean Corpuscular Hemoglobin 28.0 PG (27.0-31.0) Mean Corpuscular Hemoglobin Concent 32.1 G/DL (32.0-36.0) Red Cell Distribution Width 17.2 % (11.6-14.8) Platelet Count 276 K/UL (150-450) Mean Platelet Volume 6.2 FL (6.5-10.1) Neutrophils (%) (Auto) % (45.0-75.0) Lymphocytes (%) (Auto) % (20.0-45.0) Monocytes (%) (Auto) % (1.0-10.0) Eosinophils (%) (Auto) % (0.0-3.0) Basophils (%) (Auto) % (0.0-2.0) Differential Total Cells Counted 100 Neutrophils % (Manual) 28 % (45-75) Lymphocytes % (Manual) 56 % (20-45) Monocytes % (Manual) 13 % (1-10) Eosinophils % (Manual) 3 % (0-3) Basophils % (Manual) 0 % (0-2) Band Neutrophils 0 % (0-8) Platelet Estimate Adequate Platelet Morphology Normal Hypochromasia 1+ Anisocytosis 1+ Erythrocyte Sedimentation Rate 68 MM/HR (0-20) Reticulocyte Count 0.9 % (0.0-2.0) Prothrombin Time 12.8 SEC (9.30-11.50) Prothromb Time International Ratio 1.2 (0.9-1.1) Activated Partial Thromboplast Time 32 SEC (23-33) Sodium Level 141 mEQ/L (135-145) Potassium Level 3.7 mEQ/L (3.4-4.9) Chloride Level 107 mEQ/L (98-107) Carbon Dioxide Level 24 mEQ/L (20-30) Anion Gap 10 (5-15) Blood Urea Nitrogen 14 mg/dL (7-23) Creatinine 0.9 mg/dL (0.7-1.2) Estimat Glomerular Filtration Rate > 60 mL/min (>60) Glucose Level 102 mg/dL (74-106) Calcium Level 8.7 mg/dL (8.6-10.2) Phosphorus Level 4.1 mg/dL (2.5-4.8) Magnesium Level 1.8 mg/dL (1.7-2.5) Iron Level 21 ug/dL (59-158) Total Iron Binding Capacity 368 ug/dL (250-400) Percent Iron Saturation 6 % (15-50) Unsaturated Iron Binding 347 ug/dL (112-346) Total Bilirubin 0.4 mg/dL (0.0-1.2) Aspartate Amino Transf (AST/SGOT) 43 U/L (5-40) Alanine Aminotransferase (ALT/SGPT) 14 U/L (3-41) Alkaline Phosphatase 159 U/L (40-129) Lactate Dehydrogenase 155 U/L (135-230) Total Protein 8.3 g/dL (6.6-8.7) Albumin 2.7 g/dL (3.5-5.2) Globulin 5.6 g/dL Albumin/Globulin Ratio 0.4 (1.0-2.7) Carcinoembryonic Antigen 1.7 ng/mL Vitamin B12 Level 665 pg/mL (211-946) Stool Occult Blood Positive (NEGATIVE) Studies Pre-op Studies: EKG - nsr anterolateral infarct, inferior infarct Risk Assessment & Plan Assessment: asa3 Plan: mac Status Change Before Surgery: No Pre-Antibiotics Drug: YAMILETH Anderson Jun 16, 2017 06:28
[2017-06-16 07:34] LABS: BASOPHILS % (AUTO) 1.5 % (0.0-2.0); EOSINOPHILS % (AUTO) 2.6 % (0.0-3.0); LYMPHOCYTES % (AUTO) 46.2 % (20.0-45.0); MEAN CORPUSCULAR HEMOGLOBIN 26.4 PG (27.0-31.0); MEAN CORPUSCULAR HGB CONC 30.2 G/DL (32.0-36.0); MEAN CORPUSCULAR VOLUME 88 FL (80-99); MEAN PLATELET VOLUME 5.8 FL (6.5-10.1); MONOCYTES % (AUTO) 14.5 % (1.0-10.0); NEUTROPHILS % (AUTO) 35.1 % (45.0-75.0); PLATELET COUNT 262 K/UL (150-450); RED CELL DISTRIBUTION WIDTH 17.2 % (11.6-14.8); WHITE BLOOD COUNT 5.2 K/UL (4.8-10.8)
--- NOTE | 2017-06-16 07:39 | Pre-Procedure Note/Attestation ---
Pre-Procedure Note/Attestation Complete Prior to Procedure Planned Procedure: not applicable Procedure Narrative: egd/colonoscopy Indications for Procedure Pre-Operative Diagnosis: anemia, GIB Attestation I attest that I discussed the nature of the procedure; its benefits; risks and complications; and alternatives (and the risks and benefits of such alternatives ), prior to the procedure, with the patient (or the patient's legal customer contact representative). I attest that, if there was a reasonable possibility of needing a blood transfusion, the patient (or the patient's legal customer contact representative) was given the [facility] standardized written summary, pursuant to the Bony Juancarlos Blood Safety Act ([place] Health and Safety Code # 1645, as amended). I attest that I re-evaluated the patient just prior to the surgery and that there has been no change in the patient's H&P, except as documented below: ELVER MARTIN Jun 16, 2017 07:39
[2017-06-16] MEDS ORDERED: Propofol 10mg/ml 20ml IV ONE (07:45)
[2017-06-16] MEDS ORDERED: Lidocaine 1% MPF 10mg/ml 5ml ONE (07:45)
[2017-06-16 07:49] LABS: INR 1.2 (0.9-1.1); PROTHROMBIN TIME 12.6 SEC (9.30-11.50)
[2017-06-16 07:58] LABS: ANION GAP 12 (5-15); CALCIUM 8.8 mg/dL (8.6-10.2); CARBON DIOXIDE 24 mEQ/L (20-30); CHLORIDE 103 mEQ/L (98-107); CREATININE 0.6 mg/dL (0.7-1.2); GLOMERULAR FILTRATION RATE > 60 mL/min (>60); HEMOLYSIS 3; POTASSIUM 3.6 mEQ/L (3.4-4.9); SODIUM 139 mEQ/L (135-145)
--- NOTE | 2017-06-16 08:08 | Endoscopy Procedure Note ---
Endoscopy Procedure Note Indication for Procedure: gib Procedures Performed: EGD, colonoscopy Operative Findings/Diagnosis: EV s/p banding Specimen: yes Pt Tolerated Procedure Well: Yes Estimated Blood Loss: none Anesthesiologist: harini Anesthesia: MAC Implant(s) used?: No 50 yrs or older w/o bx or poly: Not Applicable 10yrs. F/U not recommended: Not Applicable ELVER MARTIN Jun 16, 2017 08:08
[2017-06-16] MEDS ORDERED: Hydromorphone 0.5mg/0.5ml inj IVP PRN (08:15)
[2017-06-16] MEDS ORDERED: Atropine Inj 1mg/10ml Syr IV PRN (08:15)
[2017-06-16] MEDS ORDERED: DiphenhydrAMINE 50mg/ml Inj IVP PRN (08:15)
[2017-06-16] MEDS ORDERED: Midazolam 2mg/2ml Inj IVP PRN (08:15)
[2017-06-16] MEDS: Heparin 5000 units/ml inj SUBQ SCH ×2 (09:00→20:20)
[2017-06-16] MEDS: Docusate 100mg cap ORAL SCH ×2 (09:00→17:39)
[2017-06-16] MEDS: Aspirin Baby 81mg ORAL SCH (09:00)
[2017-06-16] MEDS: ZyPREXA Zydis 10mg tab ORAL SCH ×2 (09:00→09:38)
--- NOTE | 2017-06-16 12:02 | General Progress Note ---
Assessment/Plan Status: stable, progressing Subjective Constitutional: Reports: malaise, weakness Neurologic/Psychiatric: Reports: anxiety, emotional problems Allergies: Coded Allergies: No Known Allergies (Unverified , 06/10/17) Subjective the pt is calm no agitation, Objective Last 24 Hour Vital Signs Date Time Temp Pulse Resp B/P (MAP) Pulse Ox O2 Delivery O2 Flow Rate FiO2 06/16/17 11:50 97.9 71 20 112/74 97 Room Air 06/16/17 08:34 99 20 117/80 95 Room Air 06/16/17 08:23 93 20 112/79 96 Room Air 06/16/17 08:18 103 20 108/80 96 Nasal Cannula 2.0 06/16/17 08:13 98.4 113 20 110/79 96 Nasal Cannula 2.0 06/16/17 06:39 91 14 Room Air 06/16/17 03:54 97.6 69 21 113/69 Room Air 06/16/17 00:15 97.7 68 21 110/69 Room Air 06/15/17 19:46 87 14 Room Air 06/15/17 19:44 97.6 75 20 102/62 98 Room Air 06/15/17 15:49 97.8 83 20 114/73 96 Room Air Intake and Output 06/16/17 06/17/17 19:00 07:00 Intake Total 300 ml Balance 300 ml IV Total 300 ml Laboratory Tests 06/16/17 05:20: White Blood Count 5.2, Red Blood Count 3.70L, Hemoglobin 9.8L, Hematocrit 32.5L , Mean Corpuscular Volume 88, Mean Corpuscular Hemoglobin 26.4L, Mean Corpuscular Hemoglobin Concent 30.2L, Red Cell Distribution Width 17.2H, Platelet Count 262, Mean Platelet Volume 5.8L, Neutrophils (%) (Auto) 35.1L, Lymphocytes (%) (Auto) 46.2H, Monocytes (%) (Auto) 14.5H, Eosinophils (%) (Auto ) 2.6, Basophils (%) (Auto) 1.5, Prothrombin Time 12.6H, Prothromb Time International Ratio 1.2H, Activated Partial Thromboplast Time 32, Sodium Level 139, Potassium Level 3.6, Chloride Level 103, Carbon Dioxide Level 24, Anion Gap 12, Blood Urea Nitrogen 10, Creatinine 0.6L, Estimat Glomerular Filtration Rate > 60, Glucose Level 81, Calcium Level 8.8, Carcinoembryonic Antigen 1.7 Height (Feet): 5 Height (Inches): 6.00 Weight (Pounds): 120 General Appearance: no apparent distress, alert Neurologic: alert, oriented x 3, responsive, depressed affect Ari Cannon M.D. Jun 16, 2017 12:02
--- NOTE | 2017-06-16 16:03 | Pulmonology Progress Note ---
Assessment/Plan Problems: (1) Esophageal and gastric varices (2) Seizure disorder (3) Behavioral change (4) H/O craniotomy (5) History of intracranial injury (6) Diabetes mellitus (7) Liver cirrhosis (8) Coagulopathy Assessment/Plan improving endoscopy results noted s/p banding of varices pt/ot med/surg psych evaluation Subjective ROS Limited/Unobtainable: No Constitutional: Reports: no symptoms HEENT: Repors: no symptoms Respiratory: Reports: no symptoms Allergies: Coded Allergies: No Known Allergies (Unverified , 06/10/17) Objective Last 24 Hour Vital Signs Date Time Temp Pulse Resp B/P (MAP) Pulse Ox O2 Delivery O2 Flow Rate FiO2 06/16/17 11:50 97.9 71 20 112/74 97 Room Air 06/16/17 08:34 99 20 117/80 95 Room Air 06/16/17 08:23 93 20 112/79 96 Room Air 06/16/17 08:18 103 20 108/80 96 Nasal Cannula 2.0 06/16/17 08:13 98.4 113 20 110/79 96 Nasal Cannula 2.0 06/16/17 06:39 91 14 Room Air 06/16/17 03:54 97.6 69 21 113/69 Room Air 06/16/17 00:15 97.7 68 21 110/69 Room Air 06/15/17 19:46 87 14 Room Air 06/15/17 19:44 97.6 75 20 102/62 98 Room Air Intake and Output 06/16/17 06/17/17 19:00 07:00 Intake Total 300 ml Balance 300 ml IV Total 300 ml # Voids 1 General Appearance: WD/WN HEENT: normocephalic, atraumatic Respiratory/Chest: chest wall non-tender, lungs clear Cardiovascular: normal peripheral pulses, normal rate Abdomen: soft, non tender, no organomegaly Extremities: no clubbing Skin: no lesions Laboratory Tests 06/16/17 05:20: White Blood Count 5.2, Red Blood Count 3.70L, Hemoglobin 9.8L, Hematocrit 32.5L , Mean Corpuscular Volume 88, Mean Corpuscular Hemoglobin 26.4L, Mean Corpuscular Hemoglobin Concent 30.2L, Red Cell Distribution Width 17.2H, Platelet Count 262, Mean Platelet Volume 5.8L, Neutrophils (%) (Auto) 35.1L, Lymphocytes (%) (Auto) 46.2H, Monocytes (%) (Auto) 14.5H, Eosinophils (%) (Auto ) 2.6, Basophils (%) (Auto) 1.5, Prothrombin Time 12.6H, Prothromb Time International Ratio 1.2H, Activated Partial Thromboplast Time 32, Sodium Level 139, Potassium Level 3.6, Chloride Level 103, Carbon Dioxide Level 24, Anion Gap 12, Blood Urea Nitrogen 10, Creatinine 0.6L, Estimat Glomerular Filtration Rate > 60, Glucose Level 81, Calcium Level 8.8, Carcinoembryonic Antigen 1.7 Current Medications Medications (Trade) Dose Ordered Sig/Alva Route PRN Reason Start Time Stop Time Status Last Admin Dose Admin Acetaminophen (Tylenol) 650 mg Q4H PRN ORAL FEVER 06/13/17 16:00 07/10/17 15:59 Albuterol/ Ipratropium (DuoNeb 0.5-3(2.5)mg/3ml) 3 ml Q4H PRN HHN Shortness of Breath 06/14/17 15:15 06/19/17 15:14 Aspirin (ASA) 162 mg DAILY ORAL 06/14/17 09:00 07/11/17 08:59 06/15/17 09:01 Docusate Sodium (Colace) 100 mg TWICE A DAY ORAL 06/13/17 18:00 07/11/17 08:59 06/13/17 18:07 Enalaprilat (Vasotec) 2.5 mg EVERY 6 HOURS PRN IV sbp more than 160 06/13/17 18:00 07/10/17 22:29 Haloperidol Lactate (Haldol) 5 mg Q6H PRN IM Agitation 06/13/17 17:00 07/13/17 16:59 Heparin Sodium (Porcine) (Heparin 5000 units/ml) 5,000 units EVERY 12 HOURS SUBQ 06/13/17 21:00 07/11/17 08:59 06/14/17 21:02 Levetiracetam (Keppra) 1,000 mg Q12HR ORAL 06/14/17 21:00 07/14/17 20:59 06/15/17 20:15 Lorazepam (Ativan 2mg/ml 1ml) 1 mg Q2H PRN IV For Anxiety 06/13/17 16:00 06/19/17 15:59 Magnesium Hydroxide (Mom) 30 ml DAILY PRN ORAL Constipation 06/13/17 16:00 07/13/17 15:59 Morphine Sulfate (Morphine Sulfate) 2 mg EVERY 4 HOURS PRN IVP severe Pain (Pain Scale 7-10) 06/13/17 17:00 06/17/17 22:29 06/16/17 09:38 Nitroglycerin (Ntg) 0.4 mg Every 5 Minutes PRN SL Prn Chest Pain 06/13/17 15:00 07/10/17 14:59 Olanzapine (ZyPREXA Zydis) 10 mg DAILY ORAL 06/14/17 09:00 07/14/17 08:59 Ondansetron HCl (Zofran) 4 mg Q4H PRN ORAL Nausea & Vomiting 06/13/17 17:00 07/13/17 16:59 Pantoprazole (Protonix) 40 mg DAILY ORAL 06/14/17 09:00 07/11/17 08:59 Polyethylene Glycol (Miralax) 17 gm DAILYPRN PRN ORAL Constipation 06/13/17 18:00 07/10/17 17:59 Risperidone (RisperDAL) 2 mg BEDTIME ORAL 06/13/17 21:00 07/13/17 20:59 06/15/17 20:16 Temazepam (Restoril) 15 mg HSPRN PRN ORAL Insomnia 06/13/17 21:00 06/17/17 20:59 RONAK SAMANO Jun 16, 2017 16:03
--- NOTE | 2017-06-16 19:25 | Neurology Progress Note ---
Interim History Interim History Interim History Mr. Celeste feels better. He is awake and alert. He is cooperative. He denies any new problems. He has had no witnessed seizures. He has been taking his medicines regularly. Review of Systems Neuro Review of Systems Benign. Objective Physical Exam Last Vital Signs Date Time Temp Pulse Resp B/P (MAP) Pulse Ox O2 Delivery O2 Flow Rate FiO2 06/16/17 16:15 97.6 70 21 121/70 97 Room Air 06/16/17 08:18 2.0 06/11/17 19:44 21 Laboratory Tests Test 06/16/17 05:20 White Blood Count 5.2 K/UL (4.8-10.8) Red Blood Count 3.70 M/UL (4.70-6.10) L Hemoglobin 9.8 G/DL (14.2-18.0) L Hematocrit 32.5 % (42.0-52.0) L Mean Corpuscular Volume 88 FL (80-99) Mean Corpuscular Hemoglobin 26.4 PG (27.0-31.0) L Mean Corpuscular Hemoglobin Concent 30.2 G/DL (32.0-36.0) L Red Cell Distribution Width 17.2 % (11.6-14.8) H Platelet Count 262 K/UL (150-450) Mean Platelet Volume 5.8 FL (6.5-10.1) L Neutrophils (%) (Auto) 35.1 % (45.0-75.0) L Lymphocytes (%) (Auto) 46.2 % (20.0-45.0) H Monocytes (%) (Auto) 14.5 % (1.0-10.0) H Eosinophils (%) (Auto) 2.6 % (0.0-3.0) Basophils (%) (Auto) 1.5 % (0.0-2.0) Prothrombin Time 12.6 SEC (9.30-11.50) H Prothromb Time International Ratio 1.2 (0.9-1.1) H Activated Partial Thromboplast Time 32 SEC (23-33) Sodium Level 139 mEQ/L (135-145) Potassium Level 3.6 mEQ/L (3.4-4.9) Chloride Level 103 mEQ/L (98-107) Carbon Dioxide Level 24 mEQ/L (20-30) Anion Gap 12 (5-15) Blood Urea Nitrogen 10 mg/dL (7-23) Creatinine 0.6 mg/dL (0.7-1.2) L Estimat Glomerular Filtration Rate > 60 mL/min (>60) Glucose Level 81 mg/dL (74-106) Calcium Level 8.8 mg/dL (8.6-10.2) Carcinoembryonic Antigen 1.7 ng/mL Neurologic Exam Objective PHYSICAL EXAMINATION: GENERAL: He is a well-developed, but lean gentleman, lying in bed, in no acute distress. HEAD: Normocephalic with recent subdural hematoma evacuation scar on the left scalp with dehiscence of the wound in the parietooccipital area. EENT: Examination benign. NECK: No neck rigidity was observed. NEUROLOGIC EXAMINATION: MENTAL STATUS EXAMINATION: He was awake and alert. He was oriented to self only. He was able to recall 3/3 words immediately but could not remember them in 1 and 3 minutes. He was unable to remember who the present and prior presidents are. SPEECH: He had a moderate dysarthria. LANGUAGE: He was able to comprehend and express himself well. CRANIAL NERVE EXAMINATION: II: Visual reynolds were intact to confrontation. III, IV & : The external ocular movements were full and the pupils 3 mm in diameter, equal, round, regular, and reactive to light. V: He had normal facial sensations and the temporales, masseters, and pterygoids functioned normally. VII: He had flattening of the right nasolabial fold. VIII: He was able to hear well bilaterally and had no nystagmus. IX: The palate moved symmetrically on phonation. X: He had no hoarseness of voice. XI: The sternocleidomastoids and trapezii functioned normally. XII: The tongue was in the midline without any fasciculations or atrophy. MOTOR SYSTEM: The tone was normal in all four extremities. Examination of muscle mass revealed no focal wasting. Examination of power revealed G 5/5 power. SENSORY EXAMINATION: He was able to discern light touch all over. REFLEXES: 1++ on the right and 1+ on the left at the biceps, triceps, brachioradialis, and knees and 0 at both ankles. The plantar responses were flexor bilaterally. COORDINATION: He performed well in finger to nose and heel to suárez testing. STANCE & GAIT: Were deferred. Impression/Recommendations Diagnostic Impression 1. Mr. Patrick Celeste is a 57-year-old, right-handed, gentleman, who does have a past history of hypertension, diabetes mellitus, alcohol abuse, seizure disorder of unknown type, and left subdural hematoma status post drainage with problems with wound healing, who apparently became combative at his [facility] and refused to take his medicines as a result of which, he was hospitalized at [facility]. 2. He continues to feel better, is behaving well, and has been seizure-free. 3. On neurological examination, at this time, he does have problems with orientation, memory and other cognitive function. He also has a right VII central facial paresis and brisker reflexes on the right side compared to the left, but the reflexes are globally diminished. 4. Laboratory data on admission revealed that he was mildly anemic with a hemoglobin of 10.4. His chemistry panel revealed a sodium, which was low at 133 , a glucose that was elevated to 236, an alkaline phosphatase elevated to 167, and albumin that was low at 3.0. Further laboratory tests revealed that his TSH was normal at 2.5 and hemoglobin A1c was also normal at 5.7. 5. The EEG done on 06/12/17 revealed a mild encephalopathy, left fronto-centro- temporal focal dysfunction, and a right mid- and posterior- temporal epileptogenic focus with inter-ictal discharges. 6. The CT of the brain done on 06/11/17 revealed no subdural hematoma. However evidence of relatively recent left craniotomy with a small focus of pneumocephalus still present, and signs of encephalomalacia within the left temporal lobe.were seen. 7. The patient's history, neurological examination, and laboratory data are most compatible with behavioral problems following traumatic brain injury. He also seems to have significant cognitive problems, which may be related to the head trauma or due to other reasons. 8. He does have a mild right paresis with brisker reflexes on the right side. Recommendations 1. Continue present management. 2. Continue the patient on Keppra 1 g q.12 hours. 3. Treatment of behavioral problems as per psychiatrist. Hyacinth Salmeron M.D., M.S.P.[facility]. HYACINTH SALMERON Jun 16, 2017 19:25
--- NOTE | 2017-06-16 20:45 | Procedure Note ---
DATE OF PROCEDURE: 06/16/2017 SURGEON: Chito Moe M.D. PROCEDURE: Upper endoscopy with biopsy and banding of esophageal varices and colonoscopy. ANESTHESIOLOGIST: Estefanía Ceja M.D. INSTRUMENT: Olympus adult flexible upper endoscope and colonoscope. INDICATION: Stool OB positive and GI bleeding. REASON FOR PROCEDURE: The procedure, risks, benefits, and possible consequences, including hemorrhage, aspiration, perforation and infection, and alternative treatments, were explained to the patient/legal guardian by Dr. Chtio Moe and the patient/legal guardian understood and accepted these risks. PROCEDURE: After informed consent was obtained and the patient was adequately sedated, Olympus upper endoscope was advanced from mouth into the second portion of the duodenum and retroflexion was performed in the stomach. The patient had 4 columns of grade 3 distal esophageal varices. In the stomach, there was diffuse evidence of portal hypertensive gastropathy. Random biopsy from antrum was obtained. The duodenal mucosa grossly looked within normal limits. At this time, the upper endoscope was retrieved, banding device was placed, and total of four bands were placed in the distal esophagus. Then, the patient was turned over for colonoscopy. First, rectal exam was performed which shows positive for internal hemorrhoids. Then the scope was advanced from the rectum into the cecum documented by appendiceal orifice, ileocecal valve, and upper quadrant palpation. Quality of prep was fair. The patient had no obvious polyp, mass, diverticulosis, or any pathology seen in the colon. Retroflexion of rectum showed evidence of internal hemorrhoids. SUMMARY OF FINDINGS: 1. Esophageal varices, status post banding x4. 2. Portal hypertensive gastropathy, status post biopsy. 3. Internal hemorrhoids. RECOMMENDATIONS: The patient to be started on clear liquid diet tonight and advanced diet tomorrow if stable. Needs outpatient followup for repeat endoscopy in two weeks for repeat banding for ablation of these varices. Meanwhile, we are going to start the patient on propranolol 10 mg t.i.d. if his blood pressure and pulse is stable. I want to thank, Dr. Leos, for this kind referral. Chito Moe M.D. DR: LAKSHMI JOB#: [id number] CC: Jorge Leos M.D.; Fax#: [phone]
[2017-06-17 00:01] VITALS: BP 118/68
[2017-06-17 04:00] VITALS: BP 98/62
[2017-06-17 05:05] VITALS: BP 98/62
[2017-06-17 06:58] LABS: INR 1.2 (0.9-1.1); PROTHROMBIN TIME 13.1 SEC (9.30-11.50)
[2017-06-17 07:09] LABS: BASOPHILS % (AUTO) 2.2 % (0.0-2.0); EOSINOPHILS % (AUTO) 2.7 % (0.0-3.0); LYMPHOCYTES % (AUTO) 51.9 % (20.0-45.0); MEAN CORPUSCULAR HEMOGLOBIN 28.5 PG (27.0-31.0); MEAN CORPUSCULAR HGB CONC 32.4 G/DL (32.0-36.0); MEAN CORPUSCULAR VOLUME 88 FL (80-99); MEAN PLATELET VOLUME 5.6 FL (6.5-10.1); MONOCYTES % (AUTO) 15.4 % (1.0-10.0); NEUTROPHILS % (AUTO) 27.9 % (45.0-75.0); PLATELET COUNT 221 K/UL (150-450); RED BLOOD COUNT 3.33 M/UL (4.70-6.10); WHITE BLOOD COUNT 5.3 K/UL (4.8-10.8)
[2017-06-17 07:22] LABS: MAGNESIUM 1.6 mg/dL (1.7-2.5); PHOSPHORUS 4.8 mg/dL (2.5-4.8)
[2017-06-17 07:27] LABS: ALANINE AMINOTRANSFERASE 15 U/L (3-41); ALBUMIN/GLOBULIN RATIO 0.4 (1.0-2.7); ANION GAP 10 (5-15); ASPARTATE AMINO TRANSFERASE 35 U/L (5-40); CALCIUM 8.7 mg/dL (8.6-10.2); CARBON DIOXIDE 23 mEQ/L (20-30); CHLORIDE 103 mEQ/L (98-107); CREATININE 0.6 mg/dL (0.7-1.2); GLOMERULAR FILTRATION RATE > 60 mL/min (>60); HEMOLYSIS 1; POTASSIUM 3.7 mEQ/L (3.4-4.9); SODIUM 136 mEQ/L (135-145)
[2017-06-17 07:52] LABS: OTHERS PATHOLOGIST COMMENT
[2017-06-17 08:00] VITALS: BP 111/63
[2017-06-17] MEDS: ZyPREXA Zydis 10mg tab ORAL SCH ×2 (10:23→10:29)
[2017-06-17] MEDS: Aspirin Baby 81mg ORAL SCH ×2 (10:23→10:28)
[2017-06-17] MEDS: Docusate 100mg cap ORAL SCH ×2 (10:23→10:28)
[2017-06-17] MEDS: Heparin 5000 units/ml inj SUBQ SCH (10:23)
--- NOTE | 2017-06-17 11:38 | GI Progress Note ---
Assessment/Plan Problems: (1) Diabetes mellitus ICD Codes: E11.9 - Type 2 diabetes mellitus without complications SNOMED: 65881625 (2) Occult blood in stools ICD Codes: R19.5 - Other fecal abnormalities SNOMED: 94788617, 474610863 (3) Anemia ICD Codes: D64.9 - Anemia, unspecified SNOMED: 767909284 (4) Liver cirrhosis ICD Codes: K74.60 - Unspecified cirrhosis of liver SNOMED: 30569956 (5) Esophageal and gastric varices ICD Codes: I85.00 - Esophageal varices without bleeding; I86.4 - Gastric varices SNOMED: 840766086 Status: stable Status Narrative Discussed with Dr. Moe. Assessment/Plan SUMMARY OF FINDINGS: 1. Esophageal varices, status post banding x4. 2. Portal hypertensive gastropathy, status post biopsy. 3. Internal hemorrhoids. RECOMMENDATIONS: patient requires repeat EGD with banding in 2 weeks defer propranolol 10mg TID at this time >> monitor BP and HR monitor H&H, prn transfusions ppi adv to soft diet fu bx fu labs Subjective Subjective limited Objective Last 24 Hour Vital Signs Date Time Temp Pulse Resp B/P (MAP) Pulse Ox O2 Delivery O2 Flow Rate FiO2 06/17/17 08:34 16 Room Air 06/17/17 08:00 97.3 85 20 111/63 96 Room Air 06/17/17 05:05 97.3 65 20 98/62 97 Room Air 06/17/17 04:00 97.3 67 20 98/62 96 Room Air 06/17/17 00:01 97.5 66 20 118/68 97 Room Air 06/16/17 20:06 72 16 Room Air 06/16/17 19:56 96.8 73 19 116/74 96 Room Air 06/16/17 16:15 97.6 70 21 121/70 97 Room Air 06/16/17 11:50 97.9 71 20 112/74 97 Room Air Laboratory Tests Test 06/17/17 04:30 White Blood Count 5.3 K/UL (4.8-10.8) Red Blood Count 3.33 M/UL (4.70-6.10) L Hemoglobin 9.5 G/DL (14.2-18.0) L Hematocrit 29.3 % (42.0-52.0) L Mean Corpuscular Volume 88 FL (80-99) Mean Corpuscular Hemoglobin 28.5 PG (27.0-31.0) Mean Corpuscular Hemoglobin Concent 32.4 G/DL (32.0-36.0) Red Cell Distribution Width 17.0 % (11.6-14.8) H Platelet Count 221 K/UL (150-450) Mean Platelet Volume 5.6 FL (6.5-10.1) L Neutrophils (%) (Auto) 27.9 % (45.0-75.0) L Lymphocytes (%) (Auto) 51.9 % (20.0-45.0) H Monocytes (%) (Auto) 15.4 % (1.0-10.0) H Eosinophils (%) (Auto) 2.7 % (0.0-3.0) Basophils (%) (Auto) 2.2 % (0.0-2.0) H Prothrombin Time 13.1 SEC (9.30-11.50) H Prothromb Time International Ratio 1.2 (0.9-1.1) H Activated Partial Thromboplast Time 34 SEC (23-33) H Sodium Level 136 mEQ/L (135-145) Potassium Level 3.7 mEQ/L (3.4-4.9) Chloride Level 103 mEQ/L (98-107) Carbon Dioxide Level 23 mEQ/L (20-30) Anion Gap 10 (5-15) Blood Urea Nitrogen 9 mg/dL (7-23) Creatinine 0.6 mg/dL (0.7-1.2) L Estimat Glomerular Filtration Rate > 60 mL/min (>60) Glucose Level 82 mg/dL (74-106) Calcium Level 8.7 mg/dL (8.6-10.2) Phosphorus Level 4.8 mg/dL (2.5-4.8) Magnesium Level 1.6 mg/dL (1.7-2.5) L Total Bilirubin 0.9 mg/dL (0.0-1.2) Aspartate Amino Transf (AST/SGOT) 35 U/L (5-40) Alanine Aminotransferase (ALT/SGPT) 15 U/L (3-41) Alkaline Phosphatase 107 U/L (40-129) Total Protein 8.0 g/dL (6.6-8.7) Albumin 2.6 g/dL (3.5-5.2) L Globulin 5.4 g/dL Albumin/Globulin Ratio 0.4 (1.0-2.7) L Hepatitis A IgM Antibody Pending Hepatitis B Surface Antigen Pending Hepatitis B Core IgM Antibody Pending Hepatitis C Antibody Pending Height (Feet): 5 Height (Inches): 6.00 Weight (Pounds): 120 General Appearance: no apparent distress, alert Cardiovascular: normal rate Respiratory/Chest: normal breath sounds, no accessory muscle use Abdominal Exam: normal bowel sounds, non tender, soft Extremities: normal range of motion Maliha Faith N.P. Jun 17, 2017 11:38
--- NOTE | 2017-06-17 22:14 | Pulmonology Progress Note ---
Assessment/Plan Problems: (1) Esophageal and gastric varices (2) Seizure disorder (3) Behavioral change (4) H/O craniotomy (5) History of intracranial injury (6) Diabetes mellitus (7) Liver cirrhosis (8) Coagulopathy Assessment/Plan improving endoscopy results noted s/p banding of varices pt/ot med/surg psych evaluation dc to snf today Subjective ROS Limited/Unobtainable: No Allergies: Coded Allergies: No Known Allergies (Unverified , 06/10/17) Objective Last 24 Hour Vital Signs Date Time Temp Pulse Resp B/P (MAP) Pulse Ox O2 Delivery O2 Flow Rate FiO2 06/17/17 08:34 16 Room Air 06/17/17 08:00 97.3 85 20 111/63 96 Room Air 06/17/17 05:05 97.3 65 20 98/62 97 Room Air 06/17/17 04:00 97.3 67 20 98/62 96 Room Air 06/17/17 00:01 97.5 66 20 118/68 97 Room Air Intake and Output 06/17/17 06/18/17 19:00 07:00 Intake Total 720 ml Balance 720 ml Intake Oral 720 ml General Appearance: WD/WN HEENT: atraumatic Respiratory/Chest: chest wall non-tender, lungs clear Genitourinary: normal external genitalia Extremities: no clubbing Skin: no lesions Neurologic/Psychiatric: medical representative II-XII grossly normal Laboratory Tests 06/17/17 04:30: White Blood Count 5.3, Red Blood Count 3.33L, Hemoglobin 9.5L, Hematocrit 29.3L , Mean Corpuscular Volume 88, Mean Corpuscular Hemoglobin 28.5, Mean Corpuscular Hemoglobin Concent 32.4, Red Cell Distribution Width 17.0H, Platelet Count 221, Mean Platelet Volume 5.6L, Neutrophils (%) (Auto) 27.9L, Lymphocytes (%) (Auto) 51.9H, Monocytes (%) (Auto) 15.4H, Eosinophils (%) (Auto ) 2.7, Basophils (%) (Auto) 2.2H, Prothrombin Time 13.1H, Prothromb Time International Ratio 1.2H, Activated Partial Thromboplast Time 34H, Sodium Level 136, Potassium Level 3.7, Chloride Level 103, Carbon Dioxide Level 23, Anion Gap 10, Blood Urea Nitrogen 9, Creatinine 0.6L, Estimat Glomerular Filtration Rate > 60, Glucose Level 82, Calcium Level 8.7, Phosphorus Level 4.8, Magnesium Level 1.6L, Total Bilirubin 0.9, Aspartate Amino Transf (AST/SGOT) 35, Alanine Aminotransferase (ALT/SGPT) 15, Alkaline Phosphatase 107, Total Protein 8.0, Albumin 2.6L, Globulin 5.4, Albumin/Globulin Ratio 0.4L, Hepatitis A IgM Antibody [Pending], Hepatitis B Surface Antigen [Pending], Hepatitis B Core IgM Antibody [Pending], Hepatitis C Antibody [Pending] RONAK SAMANO Jun 17, 2017 22:14
--- NOTE | 2017-06-17 22:37 | General Progress Note ---
Assessment/Plan Status: stable, progressing Subjective Neurologic/Psychiatric: Reports: anxiety, depressed, emotional problems Allergies: Coded Allergies: No Known Allergies (Unverified , 06/10/17) Subjective the pt is calm no agitation, Objective Last 24 Hour Vital Signs Date Time Temp Pulse Resp B/P (MAP) Pulse Ox O2 Delivery O2 Flow Rate FiO2 06/17/17 08:34 16 Room Air 06/17/17 08:00 97.3 85 20 111/63 96 Room Air 06/17/17 05:05 97.3 65 20 98/62 97 Room Air 06/17/17 04:00 97.3 67 20 98/62 96 Room Air 06/17/17 00:01 97.5 66 20 118/68 97 Room Air Intake and Output 06/17/17 06/18/17 19:00 07:00 Intake Total 720 ml Balance 720 ml Intake Oral 720 ml Laboratory Tests 06/17/17 04:30: White Blood Count 5.3, Red Blood Count 3.33L, Hemoglobin 9.5L, Hematocrit 29.3L , Mean Corpuscular Volume 88, Mean Corpuscular Hemoglobin 28.5, Mean Corpuscular Hemoglobin Concent 32.4, Red Cell Distribution Width 17.0H, Platelet Count 221, Mean Platelet Volume 5.6L, Neutrophils (%) (Auto) 27.9L, Lymphocytes (%) (Auto) 51.9H, Monocytes (%) (Auto) 15.4H, Eosinophils (%) (Auto ) 2.7, Basophils (%) (Auto) 2.2H, Prothrombin Time 13.1H, Prothromb Time International Ratio 1.2H, Activated Partial Thromboplast Time 34H, Sodium Level 136, Potassium Level 3.7, Chloride Level 103, Carbon Dioxide Level 23, Anion Gap 10, Blood Urea Nitrogen 9, Creatinine 0.6L, Estimat Glomerular Filtration Rate > 60, Glucose Level 82, Calcium Level 8.7, Phosphorus Level 4.8, Magnesium Level 1.6L, Total Bilirubin 0.9, Aspartate Amino Transf (AST/SGOT) 35, Alanine Aminotransferase (ALT/SGPT) 15, Alkaline Phosphatase 107, Total Protein 8.0, Albumin 2.6L, Globulin 5.4, Albumin/Globulin Ratio 0.4L, Hepatitis A IgM Antibody [Pending], Hepatitis B Surface Antigen [Pending], Hepatitis B Core IgM Antibody [Pending], Hepatitis C Antibody [Pending] Height (Feet): 5 Height (Inches): 6.00 Weight (Pounds): 120 General Appearance: no apparent distress, alert Neurologic: alert, responsive, disoriented, depressed affect Ari Cannon M.D. Jun 17, 2017 22:37
--- NOTE | 2017-06-18 17:54 | Discharge Summary ---
Discharge Summary Hospital Course Date of Admission Jun 10, 2017 at 20:24 Date of Discharge Jun 17, 2017 at 13:49 Admitting Diagnosis altered mental status, ACS HPI Patrick Celeste is a 57 year old male who was admitted on Jun 10, 2017 at 20:24 for Altered Mental Status Hospital Course [id number] Discharge Discharge Disposition Patient was discharged to SNF/Subacute Facility(03) Discharge Diagnoses: Patricia Vega NP Jun 18, 2017 17:54
--- NOTE | 2017-06-19 04:30 | Discharge Summary 2 SIG ---
DATE OF ADMISSION: 06/10/2017 DATE OF DISCHARGE: 06/17/2017 CONSULTANTS: 1. Ari Cannon M.D. 2. Chito Moe M.D. 3. Garrett Spence M.D. BRIEF HOSPITAL COURSE: The patient is a 57-year-old male with a seizure disorder, diabetes mellitus, and ETOH abuse with history of craniotomy, was brought in to ED for evaluation of altered level of consciousness. The patient was not taking his medications at skilled nursing and was being combative with the staff. He was just discharged from the hospital and was transferred to the skilled nursing, status post debridement to craniotomy site after he had ICH and craniotomy in April. He also has history of diabetes mellitus, history of ETOH abuse, and hypertension. He had a recent left subdural hematoma, status post drainage and had dehiscence of his wound following subdural hematoma resection. On evaluation at ED, labs showed no leukocytosis. Urinalysis was negative for infection. Chest x-ray was negative for pneumonia. EKG showed Q-waves and deep T-wave inversion in anterior and inferior leads. Troponin was negative. He had mild hyponatremia. He was then admitted to telemetry for abnormal EKG, seizure disorder, and behavior change. He underwent neurologic evaluation and on neuro exam had significant problems with orientation, recent and remote memory, visuospatial function, higher cognitive function and language. He had right VII central facial paresis and brisker reflexes on the right compared to the left, but reflexes are globally diminished. He was continued on Keppra [address] showed no subdural hematoma with evidence of recent left craniotomy with a small focus of pneumocephalus. There were signs of volume loss within the left temporal lobe. He had an EEG done that was abnormal consistent with encephalopathy of mild degree. There was focal dysfunction in the right frontal, central, temporal region and the left mid and posterior temporal epileptogenic focus with interictal discharges seen during the test. He was diagnosed to have schizophrenia and bipolar disorder with associated agitation and was given olanzapine 10 mg at bedtime with Haldol p.r.n. He had anemia and a positive stool OB. On 06/16/2017, he underwent EGD and colonoscopy. Findings showed esophageal varices, status post banding x4. There was evidence of portal hypertensive gastropathy, status post biopsy and internal hemorrhoids. He was given propranolol 10 mg b.i.d. and was recommended repeat endoscopy in two weeks for repeat banding and ablation of the varices. He was continued on proton pump inhibitors and diet was eventually advanced. He was discharged back to skilled nursing. FINAL DIAGNOSES: 1. Esophageal and gastric varices. 2. Seizure disorder. 3. Behavioral change. 4. History of craniotomy. 5. History of intracranial injury. 6. Diabetes mellitus. 7. Liver cirrhosis. 8. Coagulopathy. 9. Schizophrenia. 10. Bipolar disorder. 11. Internal hemorrhoids. DISPOSITION: The patient was discharged to [facility]. DISCHARGE MEDICATIONS: Refer to med list. FOLLOWUP: The patient needs to have repeat EGD in two weeks. Jorge Leos M.D. I have been assigned to dictate discharge summary on this account and I was not involved in the patient's management. Patricia Vega N.P. DR: DOMONIQUE JOB#: [id number] CC:
== END 2017-06-17 13:49 | DRG 950 ==
LOC: EDBD 19:45 → EDBEDREQ 20:14 → EMR 20:21 → 2E 20:24 → EDBEDREQ 20:32 → EDBEDREQTM 21:31 → EDBEDREQSVC 21:31 → EDBEDREQ 21:31 → 2E 06-11 02:42 → 4E 06-13 13:58 → 4W 06-17 08:42
PROC: 06L34CZ Occlusion of Esophageal Vein with Extraluminal Device, Percutaneous Endoscopic Approach (ICD-10-PCS; principal; 2017-06-16 07:45)
PROC: 0DJD8ZZ Inspection of Lower Intestinal Tract, Via Natural or Artificial Opening Endoscopic (ICD-10-PCS; 2017-06-16 07:45)
PROC: 0DB78ZX Excision of Stomach, Pylorus, Via Natural or Artificial Opening Endoscopic, Diagnostic (ICD-10-PCS; 2017-06-16 07:45)
DX: G93.40 Encephalopathy, unspecified (principal); K76.6 Portal hypertension; I85.10 Secondary esophageal varices without bleeding; E87.1 Hypo-osmolality and hyponatremia; F20.9 Schizophrenia, unspecified; E11.9 Type 2 diabetes mellitus without complications; G40.909 Epilepsy, unspecified, not intractable, without status epilepticus; F31.9 Bipolar disorder, unspecified; Z98.890 Other specified postprocedural states; Z87.820 Personal history of traumatic brain injury; K31.89 Other diseases of stomach and duodenum; F10.21 Alcohol dependence, in remission; K64.8 Other hemorrhoids; R45.1 Restlessness and agitation; I86.4 Gastric varices; G51.0 Bell's palsy; D64.9 Anemia, unspecified
CPT/HCPCS: 36415; 70450; 71010; 80048; 80053; 80061; 80299; 80300; 81003; 82270; 82306; 82378; 82550; 82553; 82607; 82746; 83036; 83540; 83550; 83615; 83735; 84100; 84443; 84484; 85007; 85025; 85044; 85060; 85610; 85651; 85730; 86140; 86592; 86705; 86709; 86803; 87081; 87340; 93306; 94003; 94150; 94664; 94760; 95819; 99285; J7620